=== PATIENT | male | born 1955 | race Hispanic/Latino ===

== ENCOUNTER 2017-09-04 07:24 | Emergency (ER) | payer OTHER ==
[2017-09-04 07:27] VITALS: BMI 25.7
[2017-09-04 07:29] VITALS: RESP 16; TEMP 97.8
--- NOTE | 2017-09-04 08:00 | ED PDOC ---
HPI: Psych/Substance Abuse Time Seen by Provider: 09/04/17 07:36 Chief Complaint (Nursing): GI Problem Chief Complaint (Provider): Detox History Per: Patient History/Exam Limitations: no limitations Onset/Duration Of Symptoms: Days (4) Current Symptoms Are (Timing): Still Present Additional Complaint(s): 61yo male, with past medical history of cholecystectomy, presents to ED for evaluation requesting to enter a detoxification program. Patient states he is currently withdrawing form alcohol use and reports sweats, dry heaving, lower abdominal pain and shakes. He states his last drink was 4 days ago and he has been experiencing these symptoms since then. He denies any other drug use. Patient offers no other medical complaints. PMD: Dr. Marilynn Castro Past Medical History Reviewed: Historical Data, Nursing Documentation, Vital Signs Vital Signs: Last Vital Signs Temp 97.8 F 09/04/17 07:27 Pulse 75 09/04/17 07:27 Resp 16 09/04/17 07:27 BP 127/85 09/04/17 07:27 Pulse Ox 98 09/04/17 07:27 - Medical History PMH: Denies: Diabetes, Hepatitis, HIV, HTN, Chronic Kidney Disease, Seizures, Sexually Transmitted Disease - Surgical History Surgical History: Cholecystectomy Other surgeries: nose reconstruction surgery - Family History Family History: States: No Known Family Hx, Unknown Family Hx - Social History Current smoker - smoking cessation education provided: No Ex-Smoker (has not smoked in the last 12 months): No Alcohol: > 2 Drinks/Day Drugs: Denies - Home Medications Home Medications: Ambulatory Orders Medication Instructions Recorded Alprazolam [Xanax] 0.5 mg PO TID 08/03/17 LORazepam [Ativan] 1 mg PO Q6H PRN #16 tab 09/04/17 - Allergies Allergies/Adverse Reactions: Allergies Allergy/AdvReac Type Severity Reaction Status Date / Time chlordiazepoxide AdvReac VOMITING Verified 09/04/17 07:38 [From Librium] Review of Systems ROS Statement: Except As Marked, All Systems Reviewed And Found Negative Constitutional: Positive for: Sweats, Other (shakes) Gastrointestinal: Positive for: Abdominal Pain (lower), Other ("dry heaves") Psych: Positive for: Withdrawal (alcohol) Physical Exam - Reviewed Nursing Documentation Reviewed: Yes Vital Signs Reviewed: Yes - Physical Exam Appears: Positive for: No Acute Distress Head Exam: Positive for: ATRAUMATIC, NORMAL INSPECTION, NORMOCEPHALIC Eye Exam: Positive for: Normal appearance Neck: Positive for: Supple Extremity: Positive for: Other (tremors noted to upper extremity) Neurologic/Psych: Positive for: Alert, Oriented (x 3) - Laboratory Results Result Diagrams: 09/04/17 09:04 09/04/17 09:04 - ECG ECG Rhythm: Positive for: Normal QRS, Normal ST Segment, Sinus Rhythm Rate: 66 O2 Sat by Pulse Oximetry: 98 (RA) Pulse Ox Interpretation: Normal Medical Decision Making Medical Decision Making: Time: 748 Impression: Alcohol withdrawal Plan: -- EKG -- CMP -- CBC -- UDS -- Lipase -- Ativan 1mg IM -- IV FLuids -- Urinalysis Reassess Scribe Attestation: Documented by Kalani Birmingham acting as a scribe for Gunjan Nichole MD. Provider Attestation: All medical record entries made by the Scribe were at my direction and personally dictated by me. I have reviewed the chart and agree that the record accurately reflects my personal performance of the history, physical exam, medical decision making, and the department course for this patient. I have also personally directed, reviewed, and agree with the discharge instructions and disposition. 11.00 patient feeling better. labs reviewed. [place] [employer] reviewed. No recent prescription. Patient appears to have been prescribed Ativan by his PMD. He has also been on amphetamines and opiates but none recently. Will give 4 days of Ativan and have him followup with PMD. Disposition - Clinical Impression Clinical Impression: Alcohol dependence - Patient ED Disposition Is Patient to be Admitted: No Doctor Will See Patient In The: Office Counseled Patient/Family Regarding: Diagnosis, Need For Followup, Rx Given - Disposition Referrals: Marilynn Castro MD [Family Provider] - Disposition: Routine/Home Disposition Time: 11:30 Condition: STABLE Prescriptions: LORazepam [Ativan] 1 mg PO Q6H PRN #16 tab PRN Reason: ALCOHOL Instructions: Alcohol Dependence (ED) Forms: [facility] (Malagasy) - POA Present On Arrival: None
[2017-09-04] MEDS ORDERED: Sodium Chloride 0.9% 1,000 ML IV STA (08:01)
[2017-09-04 09:10] LABS: BASO % 0.7 % (0.0-2.0); EOS % 0.8 % (0.0-4.0); HEMATOCRIT 47.4 % (35.0-51.0); LYMPH % 18.9 % (20.0-40.0); MEAN CELL VOLUME 97.7 fl (80.0-94.0); MEAN CORPUSCULAR HEMOGLOBIN 34.1 pg (27.0-31.0); MEAN CORPUSCULAR HGB CONC 34.9 g/dL (33.0-37.0); MEAN PLATELET VOLUME 7.5 fl (7.2-11.7); MONO # 0.6 K/uL (0.0-0.8); MONO % 11.5 % (0.0-10.0); NEUT # 3.5 K/uL (1.8-7.0); NEUT % 68.1 % (50.0-75.0); NRBC % 0.2 % (0.0-0.0); RED CELL DISTRIBUTION WIDTH 13.4 % (11.5-14.5); WHITE BLOOD COUNT 5.2 K/uL (4.8-10.8)
[2017-09-04 09:17] LABS: ALB/GLOB RATIO 1.6 (1.0-2.1); ALCOHOL SERUM < 10 mg/dl (0-10); ALKALINE PHOSPHATASE 80 U/L (38-126); ALT/SGPT 52 U/L (21-72); AST/SGOT 46 U/L (17-59); BILIRUBIN,TOTAL 2.1 mg/dl (0.2-1.3); BLOOD UREA NITROGEN 11 mg/dl (9-20); CALCIUM 9.5 mg/dL (8.4-10.2); CARBON DIOXIDE 26 mmol/L (22-30); CHLORIDE 100 mmol/L (98-107); GFR AFRICAN-AMERICAN > 60; GLUCOSE,RANDOM 125 mg/dL (75-110); LIPASE 154 U/L (23-300); POTASSIUM 3.7 MMOL/L (3.6-5.0); SODIUM 137 mmol/l (132-148)
[2017-09-04 11:01] LABS: RBC URINE 3 /hpf (0-3); URINE BACTERIA OCC (<OCC); URINE BILIRUBIN NEGATIVE (NEGATIVE); URINE BLOOD NEGATIVE (NEGATIVE); URINE COLOR AMBER (YELLOW); URINE GLUCOSE (UA) NEG (Normal); URINE KETONE NEGATIVE (NEGATIVE); URINE LEUKOCYTE ESTERASE NEG Leu/uL (Negative); URINE PROTEIN 30 mg/dL (NEGATIVE); URINE UROBILINOGEN 0.2-1.0 mg/dL (0.2-1.0); WBC URINE 3 /hpf (0-5)
[2017-09-04 12:07] VITALS: BP 130/72; PULSE 78; O2SAT 99
--- NOTE | 2017-09-07 17:39 | CARD ---
APPROVED REPORT EKG Measurement Heart [id number] <Conclusion> Normal sinus rhythm Left axis deviation Abnormal ECG
== END 2017-09-04 12:07 | disposition home or self-care (01) ==
LOC: H.ER 07:24
DX: F10.239 Alcohol dependence with withdrawal, unspecified (principal); Z87.891 Personal history of nicotine dependence; Z90.49 Acquired absence of other specified parts of digestive tract
CPT/HCPCS: 80053; 80320; 80324; 80345; 80346; 80349; 80353; 80358; 80361; 81003; 83690; 83992; 85025; 93005; 96372; 96374; 96375; 99283; J2060; J2405; J7040

== ENCOUNTER 2017-09-16 13:38 | Emergency (ER) | payer OTHER ==
[2017-09-16 13:39] VITALS: BMI 25.7
--- NOTE | 2017-09-16 13:46 | ED PDOC ---
HPI: Psych/Substance Abuse Time Seen by Provider: 09/16/17 13:44 Chief Complaint (Nursing): Alcohol Ingestion Chief Complaint (Provider): ETOH History Per: Patient Additional Complaint(s): 61yo male, with past medical history of cholecystectomy, Brought in by [facility], Pt fell abrasion noted to right hand. Pt admits to drinking alcohol and lost his balance. Pt fell hands out infront of him. No head injury, no LOC. no physical complaints. He denies any other drug use. Patient offers no other medical complaints. PMD: Dr. Marilynn Castro Past Medical History Reviewed: Nursing Documentation, Vital Signs Vital Signs: Last Vital Signs Temp 98.0 F 09/16/17 13:41 Pulse 60 09/16/17 13:41 Resp 18 09/16/17 13:41 BP 174/115 H 09/16/17 13:41 Pulse Ox 99 09/16/17 13:41 - Medical History PMH: No Chronic Diseases Denies: Diabetes, Hepatitis, HIV, HTN, Chronic Kidney Disease, Seizures, Sexually Transmitted Disease - Surgical History Surgical History: Cholecystectomy - Family History Family History: States: Unknown Family Hx - Social History Current smoker - smoking cessation education provided: No Alcohol: > 2 Drinks/Day Drugs: Denies - Home Medications Home Medications: Ambulatory Orders Medication Instructions Recorded Alprazolam [Xanax] 0.5 mg PO TID 08/03/17 LORazepam [Ativan] 1 mg PO Q6H PRN #16 tab 09/04/17 - Allergies Allergies/Adverse Reactions: Allergies Allergy/AdvReac Type Severity Reaction Status Date / Time chlordiazepoxide AdvReac VOMITING Verified 09/04/17 07:38 [From Librium] Review of Systems ROS Statement: Except As Marked, All Systems Reviewed And Found Negative Physical Exam - Reviewed Nursing Documentation Reviewed: Yes Vital Signs Reviewed: Yes - Physical Exam Appears: Positive for: Well, Non-toxic, No Acute Distress Head Exam: Positive for: ATRAUMATIC, NORMAL INSPECTION, NORMOCEPHALIC Skin: Positive for: Normal Color, Warm, DRY Eye Exam: Positive for: EOMI, Normal appearance, PERRL ENT: Positive for: Normal ENT Inspection Neck: Positive for: Normal, Painless ROM Cardiovascular/Chest: Positive for: Regular Rate, Rhythm Respiratory: Positive for: CNT, Normal Breath Sounds Gastrointestinal/Abdominal: Positive for: Normal Exam, Bowel Sounds, Soft Back: Positive for: Normal Inspection Extremity: Positive for: Normal ROM Neurologic/Psych: Positive for: Alert, Oriented Comments: superficial abrasion to left hand, no active bleeding - ECG O2 Sat by Pulse Oximetry: 99 Medical Decision Making Medical Decision Making: Pt in ED room on monitor: 127/84 Abrasion sites cleaned and dressed. No suture repair needed. Pt able to ambulate with steady gait. Speaking in full sentences. [facility] [address] [facility], able to ambulate home with steady gait. Disposition - Clinical Impression Clinical Impression: Alcohol abuse - Patient ED Disposition Is Patient to be Admitted: No - Disposition Disposition: Routine/Home Disposition Time: 14:16 Condition: STABLE Instructions: Abuse of Alcohol (ED) Forms: [employer] [facility] (Faroese)
[2017-09-16 13:50] VITALS: PULSE 60; RESP 18; TEMP 98; O2SAT 99
[2017-09-16 14:06] VITALS: BP 127/84
== END 2017-09-16 14:11 | disposition home or self-care (01) ==
LOC: H.ER 13:38
DX: F10.10 Alcohol abuse, uncomplicated (principal); Z90.49 Acquired absence of other specified parts of digestive tract

== ENCOUNTER 2017-10-18 08:45 | Emergency (ER) | payer OTHER ==
[2017-10-18 08:45] VITALS: BMI 25.7
[2017-10-18 08:56] VITALS: TEMP 98.6; O2SAT 97
[2017-10-18] MEDS ORDERED: Sodium Chloride 0.9% 1,000 ML IV STA (09:08)
[2017-10-18] MEDS ORDERED: Thiamine 100 mg/ml Inj IM ONE (09:09)
[2017-10-18 09:34] LABS: BASO # 0.1 K/uL (0.0-0.2); BASO % 2.7 % (0.0-2.0); EOS # 0.2 K/uL (0.0-0.7); EOS % 4.1 % (0.0-4.0); HEMOGLOBIN 17.4 g/dL (12.0-18.0); LYMPH # 1.9 K/uL (1.0-4.3); LYMPH % 37.6 % (20.0-40.0); MEAN CELL VOLUME 98.1 fl (80.0-94.0); MEAN CORPUSCULAR HEMOGLOBIN 33.7 pg (27.0-31.0); MEAN CORPUSCULAR HGB CONC 34.4 g/dL (33.0-37.0); MEAN PLATELET VOLUME 7.4 fl (7.2-11.7); MONO # 0.4 K/uL (0.0-0.8); MONO % 7.1 % (0.0-10.0); NEUT # 2.4 K/uL (1.8-7.0); NEUT % 48.5 % (50.0-75.0); NRBC % 0.2 % (0.0-0.0); RBC 5.15 Mil/uL (4.40-5.90); RED CELL DISTRIBUTION WIDTH 12.9 % (11.5-14.5)
[2017-10-18 09:50] LABS: ALB/GLOB RATIO 1.5 (1.0-2.1); ALBUMIN 4.4 g/dL (3.5-5.0); ALT/SGPT 94 U/L (21-72); AST/SGOT 118 U/L (17-59); BLOOD UREA NITROGEN 8 mg/dl (9-20); CALCIUM 9.3 mg/dL (8.4-10.2); GFR AFRICAN-AMERICAN > 60; GFR NON-AFRICAN AMERICAN > 60; LIPASE 144 U/L (23-300)
[2017-10-18 09:58] LABS: PARTIAL THROMBOPLASTIN TIME 26.8 Seconds (25.6-37.1); PROTHROMBIN TIME 11.6 Seconds (9.8-13.1)
--- NOTE | 2017-10-18 10:26 | ED PDOC ---
HPI: General Adult Time Seen by Provider: 10/18/17 09:08 Chief Complaint (Nursing): GI Problem Chief Complaint (Provider): Weakness, vomiting History Per: Patient Onset/Duration Of Symptoms: Hrs Have you had recent travel within the past 21 days to any of the following countries: [place], [place], [place] or [place]?: No Current Symptoms Are (Timing): Still Present Additional Complaint(s): 62yo male with history of alcohol dependence, presents to ED with vomiting, tremulousness, and generalized weakness since he started increasing his alcohol intake. 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 He reports this morning he had few episodes of blood tinged vomits. He also reports constipation but denies any melena. Patient states he is depressed as well but denies any suicidal ideation or plan. Of note, patient was recently admitted to [facility] in 08/2017 for detoxification. Past Medical History Reviewed: Historical Data, Nursing Documentation, Vital Signs Vital Signs: Last Vital Signs Temp 98.6 F 10/18/17 12:38 Pulse 97 H 10/18/17 12:38 Resp 16 10/18/17 12:38 BP 146/97 H 10/18/17 12:38 Pulse Ox 97 10/18/17 12:38 - Medical History PMH: Depression Denies: Diabetes, Hepatitis, HIV, HTN, Chronic Kidney Disease, Seizures, Sexually Transmitted Disease - Surgical History Surgical History: Cholecystectomy - Family History Family History: States: Unknown Family Hx - Social History Alcohol: > 2 Drinks/Day - Home Medications Home Medications: Ambulatory Orders Medication Instructions Recorded Gabapentin [Neurontin] 300 mg PO TID #90 cap 09/27/17 Multivitamins [Hexavitamin] 1 tab PO DAILY #30 tab 09/27/17 traZODone [Desyrel] 50 mg PO HS PRN #30 tab 09/27/17 - Allergies Allergies/Adverse Reactions: Allergies Allergy/AdvReac Type Severity Reaction Status Date / Time chlordiazepoxide AdvReac VOMITING Verified 10/18/17 09:03 [From Librium] Review of Systems ROS Statement: Except As Marked, All Systems Reviewed And Found Negative Constitutional: Positive for: Weakness, Other (tremulous) Gastrointestinal: Positive for: Vomiting, Constipation. Negative for: Melena Psych: Positive for: Depression. Negative for: Suicidal ideation Physical Exam - Reviewed Nursing Documentation Reviewed: Yes Vital Signs Reviewed: Yes - Physical Exam Appears: Positive for: No Acute Distress (mildly tremulous) Head Exam: Positive for: ATRAUMATIC, NORMAL INSPECTION, NORMOCEPHALIC Skin: Positive for: Normal Color Eye Exam: Positive for: Normal appearance, EOMI, PERRL Neck: Positive for: Supple Cardiovascular/Chest: Positive for: Regular Rate, Rhythm Respiratory: Positive for: Normal Breath Sounds. Negative for: Respiratory Distress Gastrointestinal/Abdominal: Positive for: Soft. Negative for: Tenderness Extremity: Positive for: Normal ROM. Negative for: Deformity, Swelling Neurologic/Psych: Positive for: Alert, Oriented - Laboratory Results Result Diagrams: 10/18/17 09:31 10/18/17 09:31 - ECG ECG: Positive for: Interpreted By Me, Viewed By Me ECG Rhythm: Positive for: Sinus Rhythm Interpretation Of ECG: Left axis deviation Rate: 73 O2 Sat by Pulse Oximetry: 97 (RA) Pulse Ox Interpretation: Normal Medical Decision Making Medical Decision Making: Impression: Generalized weakness, vomiting Plan: -- EKG -- LAbs -- IV Fluids -- Thiamine 100mg IM -- Pepcid 20mg IV -- Zofran 4mg IV labs reviewed, c/w chronic alcohol abuse Monitored 3+ hrs in ED, no signs pending DTs, CIWA scale remained <10, gait stable no vomiting in ED. Offered list detox/rehab centers in area. Requested xanax but told inappropriate medication given alcohol intake. Denies suicidal thoughts or depression currently. DC from ED as no tachycardia, no vomiting, normal mentation, no seizure activity and no evidence acute psychiatric crisis. Scribe Attestation: Documented by Kalani Birmingham, acting as a scribe for Darryl Lee DO. Provider Scribe Attestation: All medical record entries made by the Scribe were at my direction and personally dictated by me. I have reviewed the chart and agree that the record accurately reflects my personal performance of the history, physical exam, medical decision making, and the department course for this patient. I have also personally directed, reviewed, and agree with the discharge instructions and disposition. Disposition - Clinical Impression Clinical Impression: Alcohol dependence, Alcohol withdrawal - Patient ED Disposition Is Patient to be Admitted: No - Disposition Referrals: Alcoholics Anonymous [Outside] Disposition: Routine/Home Disposition Time: 12:30 Condition: STABLE Additional Instructions: Return to ER for any concern. Instructions: Alcohol Withdrawal (ED), Alcohol Dependence (ED) Forms: [employer] [facility] (Hebrew)
[2017-10-18] MEDS ORDERED: Thiamine 100 mg/ml Inj ONE (10:59)
[2017-10-18 12:39] VITALS: BP 146/97; RESP 16
--- NOTE | 2017-10-19 11:19 | CARD ---
APPROVED REPORT EKG Measurement Heart [id number] <Conclusion> Normal sinus rhythm Left axis deviation Abnormal ECG
[2017-10-24 12:49] VITALS: PULSE 73
== END 2017-10-18 12:39 | disposition home or self-care (01) ==
LOC: H.ER 08:45
DX: F10.239 Alcohol dependence with withdrawal, unspecified (principal); Z86.59 Personal history of other mental and behavioral disorders
CPT/HCPCS: 80053; 80320; 83690; 85025; 85610; 85730; 93005; 96372; 96374; 96375; 96376; 99284; C9113; J2060; J2405; J3411; J7040

== ENCOUNTER 2018-08-12 02:45 | Emergency (ER) | payer OTHER ==
[2018-08-12 02:45] VITALS: BMI 25.7
[2018-08-12 02:53] VITALS: TEMP 97.9
--- NOTE | 2018-08-12 04:00 | ED PDOC ---
HPI: Psych/Substance Abuse Time Seen by Provider: 08/12/18 02:59 Chief Complaint (Nursing): Alcohol Ingestion Chief Complaint (Provider): Alcohol Ingestion ED Caveat: Intoxicated History Per: EMS History/Exam Limitations: intoxication Onset/Duration Of Symptoms: Sudden Onset Current Symptoms Are (Timing): Still Present Modifying Factor(s): Alcohol Additional Complaint(s): 62 year old male, well-known to ED for alcohol abuse, arrives via EMS for an evaluation of public alcohol intoxication prior to arrival. Unable to obtain further medical history secondary to clinical condition. PCP: none provided Past Medical History Reviewed: Historical Data, Nursing Documentation, Vital Signs Vital Signs: Last Vital Signs Temp 97.9 F 08/12/18 02:51 Pulse 78 08/12/18 02:51 Resp 16 08/12/18 02:51 BP 112/78 08/12/18 02:51 Pulse Ox 94 L 08/12/18 02:51 - Medical History PMH: Depression Denies: Diabetes, Hepatitis, HIV, HTN, Chronic Kidney Disease, Seizures, Sexually Transmitted Disease - Surgical History Surgical History: Cholecystectomy - Family History Family History: States: Unknown Family Hx - Home Medications Home Medications: Ambulatory Orders Medication Instructions Recorded RX: Gabapentin [Neurontin] 300 mg PO TID #90 cap 09/27/17 RX: Multivitamins [Hexavitamin] 1 tab PO DAILY #30 tab 09/27/17 RX: traZODone [Desyrel] 50 mg PO HS PRN #30 tab 09/27/17 - Allergies Allergies/Adverse Reactions: Allergies Allergy/AdvReac Type Severity Reaction Status Date / Time chlordiazepoxide AdvReac VOMITING Verified 10/18/17 09:03 [From Librium] Review of Systems Review Of Systems: ROS cannot be obtained secondary to pt's inabilty to answer questions. Physical Exam - Reviewed Nursing Documentation Reviewed: Yes Vital Signs Reviewed: Yes - Physical Exam Appears: Positive for: Non-toxic, No Acute Distress Head Exam: Positive for: ATRAUMATIC, NORMAL INSPECTION, NORMOCEPHALIC Skin: Positive for: Normal Color Eye Exam: Positive for: Normal appearance ENT: Positive for: Normal ENT Inspection Neck: Positive for: Normal Cardiovascular/Chest: Positive for: Regular Rate, Rhythm Respiratory: Positive for: Normal Breath Sounds. Negative for: Respiratory Distress Gastrointestinal/Abdominal: Positive for: Normal Exam, Soft Extremity: Positive for: Normal ROM (upper/lower) Neurologic/Psych: Positive for: Alert, Oriented, Gait (unsteady), Other (slurred speech; (+) AOB) - ECG O2 Sat by Pulse Oximetry: 94 (RA) Pulse Ox Interpretation: Normal Medical Decision Making Medical Decision Making: Initial Impression: 62 year old male with alcohol intoxication Initial Plan: * Accucheck * Labs * Clinical sobriety At 7AM pt with persistent unsteady gait; patient will be s/o to Dr Oleary pending sobriety Scribe Attestation: Documented by Dannielle Stroud, acting as a scribe for Marco Irvin MD. Provider Scribe Attestation: All medical record entries made by the Scribe were at my direction and personally dictated by me. I have reviewed the chart and agree that the record accurately reflects my personal performance of the history, physical exam, medical decision making, and the department course for this patient. I have also personally directed, reviewed, and agree with the discharge instructions and disposition. Disposition - Clinical Impression Clinical Impression: Alcohol abuse with intoxication - Disposition Disposition: Transfer of Care Disposition Time: 07:00 Condition: FAIR Instructions: Alcohol Abuse and Alcoholism (DC) Forms: [employer] (Georgian)
[2018-08-12 07:33] VITALS: BP 116/74; PULSE 76; RESP 18
--- NOTE | 2018-08-12 08:27 | ED PDOC ---
- ECG O2 Sat by Pulse Oximetry: 98 Medical Decision Making Medical Decision Makin:00 Patient signed out to this provider from Dr. Irvin. Pending sobriety. Scribe Attestation: Documented by Sheldon Zimmerman acting as a scribe for Anu Oleary MD. Provider Scribe Attestation: All medical record entries made by the Scribe were at my direction and personally dictated by me. I have reviewed the chart and agree that the record accurately reflects my personal performance of the history, physical exam, medical decision making, and the department course for this patient. I have also personally directed, reviewed, and agree with the discharge instructions and disposition. Disposition - Clinical Impression Clinical Impression: Alcohol abuse with intoxication - POA Present On Arrival: None - Disposition Disposition: Routine/Home Disposition Time: 08:00 Condition: IMPROVED Instructions: Alcohol Abuse and Alcoholism (DC) Forms: [employer] (Maltese)
[2018-08-12 19:59] VITALS: O2SAT 94
== END 2018-08-12 08:15 | disposition home or self-care (01) ==
LOC: H.ER 02:45
DX: F10.129 Alcohol abuse with intoxication, unspecified (principal); Z86.59 Personal history of other mental and behavioral disorders; Y90.7 Blood alcohol level of 200-239 mg/100 ml

== ENCOUNTER 2018-09-09 13:50 | Observation (INO) | payer OTHER ==
[2018-09-09 13:52] VITALS: BMI 25.7
--- NOTE | 2018-09-09 14:19 | ED PDOC ---
HPI: Chest Pain Time Seen by Provider: 09/09/18 13:57 Chief Complaint (Nursing): Alcohol Ingestion History Per: Patient Onset/Duration Of Symptoms: Days (1) Current Symptoms Are (Timing): Still Present Severity: Moderate Associated Symptoms: Dyspnea Modifying Factors: None Additional Complaint(s): Intermittent chest pain worse today. Nonradiating. Assoc with SOB. Admits to ETOH ingestion. Denies fever. Past Medical History - Medical History PMH: Depression Denies: Diabetes, Hepatitis, HIV, HTN, Chronic Kidney Disease, Seizures, Sexually Transmitted Disease - Surgical History Surgical History: Cholecystectomy - Family History Family History: States: Unknown Family Hx - Home Medications Home Medications: Ambulatory Orders Medication Instructions Recorded Gabapentin [Neurontin] 300 mg PO TID #90 cap 09/27/17 Multivitamins [Hexavitamin] 1 tab PO DAILY #30 tab 09/27/17 traZODone [Desyrel] 50 mg PO HS PRN #30 tab 09/27/17 - Allergies Allergies/Adverse Reactions: Allergies Allergy/AdvReac Type Severity Reaction Status Date / Time chlordiazepoxide AdvReac VOMITING Verified 10/18/17 09:03 [From Librium] Review of Systems ROS Statement: Except As Marked, All Systems Reviewed And Found Negative Cardiovascular: Positive for: Chest Pain Respiratory: Positive for: Shortness of Breath Physical Exam - Reviewed Nursing Documentation Reviewed: Yes Vital Signs Reviewed: Yes - Physical Exam Appears: Positive for: Non-toxic, No Acute Distress Head Exam: Positive for: ATRAUMATIC, NORMAL INSPECTION, NORMOCEPHALIC Skin: Positive for: Normal Color, Warm, DRY Eye Exam: Positive for: EOMI, Normal appearance, PERRL ENT: Positive for: Normal ENT Inspection Neck: Positive for: Normal, Painless ROM Cardiovascular/Chest: Positive for: Regular Rate, Rhythm Respiratory: Positive for: Rhonchi. Negative for: Wheezing, Respiratory Distress Gastrointestinal/Abdominal: Positive for: Normal Exam, Soft. Negative for: Tenderness Back: Positive for: Normal Inspection Extremity: Positive for: Normal ROM Neurologic/Psych: Positive for: Alert, Oriented - Laboratory Results Result Diagrams: 09/09/18 14:26 09/09/18 14:26 Disposition - Clinical Impression Clinical Impression: Chest pain - Patient ED Disposition Is Patient to be Admitted: Yes - Disposition Disposition Time: 15:35 Condition: FAIR Forms: [facility] (Kyrgyz) - Pt Status Changed To: Hospital Disposition Of: Observation - POA Present On Arrival: None
[2018-09-09 14:31] LABS: BASO % 0.2 % (0.0-2.0); EOS # 0.3 K/uL (0.0-0.7); EOS % 6.2 % (0.0-4.0); HEMOGLOBIN 16.6 g/dL (12.0-18.0); LYMPH # 1.4 K/uL (1.0-4.3); LYMPH % 31.2 % (20.0-40.0); MEAN CELL VOLUME 100.2 fl (80.0-94.0); MEAN CORPUSCULAR HEMOGLOBIN 34.4 pg (27.0-31.0); MEAN CORPUSCULAR HGB CONC 34.3 g/dL (33.0-37.0); MEAN PLATELET VOLUME 6.6 fl (7.2-11.7); MONO # 0.5 K/uL (0.0-0.8); MONO % 11.2 % (0.0-10.0); NEUT # 2.3 K/uL (1.8-7.0); NEUT % 51.2 % (50.0-75.0); NRBC % 0.1 % (0.0-0.0); RBC 4.83 Mil/uL (4.40-5.90); RED CELL DISTRIBUTION WIDTH 15.3 % (11.5-14.5); WHITE BLOOD COUNT 4.5 K/uL (4.8-10.8)
[2018-09-09 14:45] LABS: ALB/GLOB RATIO 1.2 (1.0-2.1); ALBUMIN 3.5 g/dL (3.5-5.0); ALT/SGPT 113 U/L (21-72); AST/SGOT 157 U/L (17-59); BLOOD UREA NITROGEN 9 mg/dl (9-20); CALCIUM 8.6 mg/dL (8.4-10.2); GFR NON-AFRICAN AMERICAN > 60
[2018-09-09 14:46] VITALS: TEMP 98.7
[2018-09-09 15:02] LABS: BARBITURATES, UR NEGATIVE (NEGATIVE); BENZODIAZEPINES, UR POSITIVE (NEGATIVE); OPIATES, UR NEGATIVE (NEGATIVE); PHENCYCLIDINE, UR NEGATIVE (NEGATIVE)
[2018-09-09] MEDS ORDERED: Multivitamin (MVI) 10 ML, Thiamine 100 MG, Folic Acid 1 MG in Dextrose 5%/0.45% NS 1,00... IV ONE (15:46)
--- NOTE | 2018-09-09 15:55 | CP.PCM.HP ---
<Aquilino Handy - Last Filed: 09/09/18 16:54> History of Present Illness - History of Present Illness History of Present Illness: This is 62 y/o male with PMH of alcohol abuse admitted to [facility] acutely intoxicated for evaluation and treatment of alcohol intoxication, chest pain and syncope/fall. Patient reports he has been binge drinking since last 14 days, last drink this morning, unable to specify/recall amount and type of alcohol. Patient states he has been having chest pain on and off since last one month with gets worse with inspiration (unable to give us further information possibly due to alcohol intoxication). Reports he fell down this morning at home, denies any pain, unable to answer which part of the body hit the ground. Denies any vomiting, blurred vision, abdominal pain or f/c/n/v/d/c. PMD: unknown PMH: Alcohol abuse, denies any other medical problems PSH: rhinoplasty and cholecystectomy Allg: denies Medications: Reports he takes Xanax at home SH: Reports alcohol abuse, denies smoking or illicit drug use. patient reports he lives by himself. FH: Denies any family history ROS: As per HPI ER course: Afebrile, 120/79, HR 66, Spo2 >95% on 4L NC CBC: 4.5-16.6/48.4-139 CMP: Significant for AST/ALT 157/113 Trop x 1 negative EKG: NSR CXR: No acute changes UTOX: Alcohol 207, Benzo: positive Present on Admission - Present on Admission Any Indicators Present on Admission: No Past Patient History - Past Medical History & Family History Past Medical History?: Yes - CARDIAC Hx Hypertension: No - PULMONARY Hx Tuberculosis: No - NEUROLOGICAL Hx Seizures: No - HEENT Hx HEENT Problems: No - RENAL Hx Chronic Kidney Disease: No - ENDOCRINE/METABOLIC Hx Endocrine Disorders: No - HEMATOLOGICAL/ONCOLOGICAL Hx Human Immunodeficiency Virus (HIV): No - INTEGUMENTARY Hx Dermatological Problems: No - MUSCULOSKELETAL/RHEUMATOLOGICAL Hx Falls: No - GASTROINTESTINAL Hx Gastrointestinal Disorders: No - GENITOURINARY/GYNECOLOGICAL Hx Sexually Transmitted Disorders: No - PSYCHIATRIC Hx Depression: Yes - SURGICAL HISTORY Hx Cholecystectomy: Yes - ANESTHESIA Hx Anesthesia: Yes Hx Anesthesia Reactions: No Hx Malignant Hyperthermia: No Meds Allergies/Adverse Reactions: Allergies Allergy/AdvReac Type Severity Reaction Status Date / Time chlordiazepoxide AdvReac VOMITING Verified 10/18/17 09:03 [From Librium] Physical Exam - Constitutional Appears: No Acute Distress, Other (intoxicated ) - Head Exam Head Exam: NORMOCEPHALIC Additional comments: small abrasions on left parietal lobe - Eye Exam Eye Exam: EOMI. absent: Conjunctival injection Pupil Exam: Unequal (L pupil smaller than R ) - ENT Exam ENT Exam: Mucous Membranes Moist - Neck Exam Neck exam: Positive for: Normal Inspection - Respiratory Exam Respiratory Exam: Clear to Auscultation Bilateral, NORMAL BREATHING PATTERN. absent: Accessory Muscle Use, Wheezes - Cardiovascular Exam Cardiovascular Exam: REGULAR RHYTHM, +S1, +S2. absent: Bradycardia, Tachycardia - GI/Abdominal Exam GI & Abdominal Exam: Normal Bowel Sounds, Soft. absent: Tenderness - Exam Exam: Circumcision External exam: NORMAL EXTERNAL EXAM. absent: Lacerations - Extremities Exam Extremities exam: Negative for: calf tenderness, pedal edema, tenderness Additional comments: Left heel small open old wound - Back Exam Back exam: NORMAL INSPECTION. absent: CVA tenderness (L), CVA tenderness (R) - Neurological Exam Neurological exam: Alert - Psychiatric Exam Psychiatric exam: Anxious - Skin Skin Exam: Dry, Normal Color, Warm Results - Vital Signs Recent Vital Signs: Last Vital Signs Temp 98.7 F 09/09/18 14:45 Pulse 68 09/09/18 15:21 Resp 21 09/09/18 15:14 BP 127/79 09/09/18 15:14 Pulse Ox 94 L 09/09/18 15:14 - Labs Result Diagrams: 09/09/18 14:26 09/09/18 14:26 Labs: Laboratory Results - last 24 hr 09/09/18 09/09/18 09/09/18 14:26 14:26 14:41 WBC 4.5 L RBC 4.83 Hgb 16.6 Hct 48.4 MCV 100.2 H D MCH 34.4 H MCHC 34.3 RDW 15.3 H Plt Count 139 MPV 6.6 L Neut % (Auto) 51.2 Lymph % (Auto) 31.2 [place] % (Auto) 11.2 H Eos % (Auto) 6.2 H Baso % (Auto) 0.2 Neut # (Auto) 2.3 Lymph # (Auto) 1.4 [place] # (Auto) 0.5 Eos # (Auto) 0.3 Baso # (Auto) 0.0 Sodium 143 Potassium 4.0 Chloride 107 Carbon Dioxide 25 Anion Gap 15 BUN 9 Creatinine 0.9 Est GFR ( Amer) > 60 Est GFR (Non-Af Amer) > 60 Random Glucose 80 Calcium 8.6 Total Bilirubin 0.8 AST 157 H D ALT 113 H D Alkaline Phosphatase 82 Troponin I < 0.0120 Total Protein 6.4 Albumin 3.5 D Globulin 3.0 Albumin/Globulin Ratio 1.2 Urine Opiates Screen Negative Urine Methadone Screen Negative Ur Barbiturates Screen Negative Ur Phencyclidine Scrn Negative Ur Amphetamines Screen Negative U Benzodiazepines Scrn Positive U Oth Cocaine Metabols Negative U Cannabinoids Screen Negative Alcohol, Quantitative 207 H Assessment & Plan - Assessment and Plan (Free Text) Assessment: A/P: 62 y/o male with PMH of alcohol abuse admitted to [facility] acutely intoxicated for evaluation and treatment of alcohol intoxication, chest pain and syncope/fall. Chest pain, R/o ACS - Troponin x1 negative - EKG: NSR - F/u Trop x2 Q6H - F/u morning EKG - Pepcid for possible GERD Acute alcohol intoxication - START Banana beg - Librium 25 po Q8H - Ativan 0.5mg IV Q6H PRN for agitation - CIWA - Zofran PRN - Follow up morning electrolytes A fall, possibly due to acute intoxication - Head CT: negative for acute changes - Neuro checks DVT PPX - SCD for now <Kris Mcallister D - Last Filed: 09/09/18 18:21> Results - Vital Signs Recent Vital Signs: Last Vital Signs Temp 98.7 F 09/09/18 14:45 Pulse 60 09/09/18 18:13 Resp 16 09/09/18 18:13 BP 127/63 09/09/18 18:13 Pulse Ox 93 L 09/09/18 18:13 - Labs Result Diagrams: 09/09/18 14:26 09/09/18 14:26 Labs: Laboratory Results - last 24 hr 09/09/18 09/09/18 09/09/18 14:26 14:26 14:41 WBC 4.5 L RBC 4.83 Hgb 16.6 Hct 48.4 MCV 100.2 H D MCH 34.4 H MCHC 34.3 RDW 15.3 H Plt Count 139 MPV 6.6 L Neut % (Auto) 51.2 Lymph % (Auto) 31.2 [place] % (Auto) 11.2 H Eos % (Auto) 6.2 H Baso % (Auto) 0.2 Neut # (Auto) 2.3 Lymph # (Auto) 1.4 [place] # (Auto) 0.5 Eos # (Auto) 0.3 Baso # (Auto) 0.0 Sodium 143 Potassium 4.0 Chloride 107 Carbon Dioxide 25 Anion Gap 15 BUN 9 Creatinine 0.9 Est GFR ( Amer) > 60 Est GFR (Non-Af Amer) > 60 Random Glucose 80 Calcium 8.6 Total Bilirubin 0.8 AST 157 H D ALT 113 H D Alkaline Phosphatase 82 Troponin I < 0.0120 Total Protein 6.4 Albumin 3.5 D Globulin 3.0 Albumin/Globulin Ratio 1.2 Urine Opiates Screen Negative Urine Methadone Screen Negative Ur Barbiturates Screen Negative Ur Phencyclidine Scrn Negative Ur Amphetamines Screen Negative U Benzodiazepines Scrn Positive U Oth Cocaine Metabols Negative U Cannabinoids Screen Negative Alcohol, Quantitative 207 H Attending/Attestation - Attestation I have personally seen and examined this patient.: Yes I have fully participated in the care of the patient.: Yes I have reviewed all pertinent clinical information: Yes Notes (Text): 09/09/18 18:21 Patient seen and examined with resident. Case discussed and agreed with assessment and plan.
--- NOTE | 2018-09-09 16:20 | CT ---
Date of service: 09/09/2018 PROCEDURE: CT HEAD WITHOUT CONTRAST. HISTORY: r/o bleed COMPARISON: None available. TECHNIQUE: Axial computed tomography images were obtained through the head/brain without intravenous contrast. Radiation dose: Total exam DLP = 1030.18 mGy-cm. This CT exam was performed using one or more of the following dose reduction techniques: Automated exposure control, adjustment of the mA and/or kV according to patient size, and/or use of iterative reconstruction technique. FINDINGS: HEMORRHAGE: No intracranial hemorrhage. BRAIN: Good corticomedullary differentiation is seen. Proportional, diffuse expansion of the ventriculosulcal and cisternal spaces is appreciated with white matter lucency compatible with diffuse cerebral atrophy and chronic microangiopathy. No suspicious extra-axial fluid collection is identified and the midline brain anatomy appears grossly nonfocal as imaged. There is no mass effect throughout. VENTRICLES: Unremarkable. No hydrocephalus. CALVARIUM: Unremarkable. PARANASAL SINUSES: Unremarkable as visualized. No significant inflammatory changes. MASTOID AIR CELLS: Unremarkable as visualized. No inflammatory changes. OTHER FINDINGS: None. IMPRESSION: Mild age related neuro degenerative changes appear age-appropriate. No definite acute intracranial findings by standard CT criteria. Follow-up CT or MRI is available if clinically warranted.
--- NOTE | 2018-09-09 16:31 | RAD ---
Date of service: 09/09/2018 HISTORY: cough COMPARISON: Chest radiographs 10/26/2016. FINDINGS: LUNGS: Diminished pulmonary volumes. No acute infiltrate bilaterally. PLEURA: No significant pleural effusion identified, no pneumothorax apparent. CARDIOVASCULAR: No aortic atherosclerotic calcification present. Normal cardiac size. No pulmonary vascular congestion. OSSEOUS STRUCTURES: No significant abnormalities. VISUALIZED UPPER ABDOMEN: Normal. OTHER FINDINGS: None. IMPRESSION: Diminished pulmonary volume. No acute infiltrate bilaterally. No acute cardiovascular disease.
[2018-09-09 19:45] VITALS: PULSE 68
[2018-09-09 22:21] VITALS: BP 121/81; RESP 18; O2SAT 96
--- NOTE | 2018-09-10 00:05 | CP.PCM.DIS ---
<Ana LauraAmina - Last Filed: 09/10/18 00:06> Provider - Provider Date of Admission: 09/09/18 15:34 Attending physician: Kris Mcallister MD Time Spent in preparation of Discharge (in minutes): 5 Diagnosis - Discharge Diagnosis (1) Alcohol abuse Status: Acute (2) Chest pain Status: Acute Hospital Course - Lab Results Lab Results: Most Recent Lab Values WBC 4.5 K/uL (4.8-10.8) L 09/09/18 14:26 RBC 4.83 Mil/uL (4.40-5.90) 09/09/18 14:26 Hgb 16.6 g/dL (12.0-18.0) 09/09/18 14:26 Hct 48.4 % (35.0-51.0) 09/09/18 14:26 MCV 100.2 fl (80.0-94.0) H D 09/09/18 14:26 MCH 34.4 pg (27.0-31.0) H 09/09/18 14:26 MCHC 34.3 g/dL (33.0-37.0) 09/09/18 14:26 RDW 15.3 % (11.5-14.5) H 09/09/18 14:26 Plt Count 139 K/uL (130-400) 09/09/18 14:26 MPV 6.6 fl (7.2-11.7) L 09/09/18 14:26 Neut % (Auto) 51.2 % (50.0-75.0) 09/09/18 14: Lymph % (Auto) 31.2 % (20.0-40.0) 09/09/18 14:26 Cass % (Auto) 11.2 % (0.0-10.0) H 09/09/18 14:26 Eos % (Auto) 6.2 % (0.0-4.0) H 09/09/18 14:26 Baso % (Auto) 0.2 % (0.0-2.0) 09/09/18 14:26 Neut # (Auto) 2.3 K/uL (1.8-7.0) 09/09/18 14:26 Lymph # (Auto) 1.4 K/uL (1.0-4.3) 09/09/18 14:26 Cass # (Auto) 0.5 K/uL (0.0-0.8) 09/09/18 14:26 Eos # (Auto) 0.3 K/uL (0.0-0.7) 09/09/18 14:26 Baso # (Auto) 0.0 K/uL (0.0-0.2) 09/09/18 14:26 Sodium 143 mmol/l (132-148) 09/09/18 14:26 Potassium 4.0 MMOL/L (3.6-5.0) 09/09/18 14:26 Chloride 107 mmol/L (98-107) 09/09/18 14:26 Carbon Dioxide 25 mmol/L (22-30) 09/09/18 14:26 Anion Gap 15 (10-20) 09/09/18 14:26 BUN 9 mg/dl (9-20) 09/09/18 14:26 Creatinine 0.9 mg/dl (0.8-1.5) 09/09/18 14:26 Est GFR ( Amer) > 60 09/09/18 14:26 Est GFR (Non-Af Amer) > 60 09/09/18 14:26 Random Glucose 80 mg/dL (75-110) 09/09/18 14:26 Calcium 8.6 mg/dL (8.4-10.2) 09/09/18 14:26 Total Bilirubin 0.8 mg/dl (0.2-1.3) 09/09/18 14:26 AST 157 U/L (17-59) H D 09/09/18 14:26 ALT 113 U/L (21-72) H D 09/09/18 14:26 Alkaline Phosphatase 82 U/L (38-126) 09/09/18 14:26 Troponin I < 0.0120 ng/mL (0.00-0.120) 09/09/18 14:26 Total Protein 6.4 G/DL (6.3-8.2) 09/09/18 14:26 Albumin 3.5 g/dL (3.5-5.0) D 09/09/18 14:26 Globulin 3.0 gm/dL (2.2-3.9) 09/09/18 14:26 Albumin/Globulin Ratio 1.2 (1.0-2.1) 09/09/18 14:26 Urine Opiates Screen Negative (NEGATIVE) 09/09/18 14:41 Urine Methadone Screen Negative (NEGATIVE) 09/09/18 14:41 Ur Barbiturates Screen Negative (NEGATIVE) 09/09/18 14:41 Ur Phencyclidine Scrn Negative (NEGATIVE) 09/09/18 14:41 Ur Amphetamines Screen Negative (NEGATIVE) 09/09/18 14:41 U Benzodiazepines Scrn Positive (NEGATIVE) 09/09/18 14:41 U Oth Cocaine Metabols Negative (NEGATIVE) 09/09/18 14:41 U Cannabinoids Screen Negative (NEGATIVE) 09/09/18 14:41 Alcohol, Quantitative 207 mg/dl (0-10) H 09/09/18 14:26 - Hospital Course Hospital Course: Called from ED that pt wanted to sign out AMA. Pt walked out of ED. Discharge Plan - Follow Up Plan Condition: FAIR Disposition: AGAINST MEDICAL ADVICE <Radha Orozco - Last Filed: 09/12/18 20:17> Provider - Provider Date of Admission: 09/09/18 15:34 Attending physician: Kris Mcallister MD Hospital Course - Lab Results Lab Results: Most Recent Lab Values WBC 4.5 K/uL (4.8-10.8) L 09/09/18 14:26 RBC 4.83 Mil/uL (4.40-5.90) 09/09/18 14:26 Hgb 16.6 g/dL (12.0-18.0) 09/09/18 14:26 Hct 48.4 % (35.0-51.0) 09/09/18 14:26 MCV 100.2 fl (80.0-94.0) H D 09/09/18 14:26 MCH 34.4 pg (27.0-31.0) H 09/09/18 14:26 MCHC 34.3 g/dL (33.0-37.0) 09/09/18 14:26 RDW 15.3 % (11.5-14.5) H 09/09/18 14:26 Plt Count 139 K/uL (130-400) 09/09/18 14:26 MPV 6.6 fl (7.2-11.7) L 09/09/18 14: Neut % (Auto) 51.2 % (50.0-75.0) 09/09/18 14:26 Lymph % (Auto) 31.2 % (20.0-40.0) 09/09/18 14:26 Cass % (Auto) 11.2 % (0.0-10.0) H 09/09/18 14:26 Eos % (Auto) 6.2 % (0.0-4.0) H 09/09/18 14:26 Baso % (Auto) 0.2 % (0.0-2.0) 09/09/18 14:26 Neut # (Auto) 2.3 K/uL (1.8-7.0) 09/09/18 14: Lymph # (Auto) 1.4 K/uL (1.0-4.3) 09/09/18 14: Cass # (Auto) 0.5 K/uL (0.0-0.8) 09/09/18 14: Eos # (Auto) 0.3 K/uL (0.0-0.7) 09/09/18 14:26 Baso # (Auto) 0.0 K/uL (0.0-0.2) 09/09/18 14:26 Sodium 143 mmol/l (132-148) 09/09/18 14:26 Potassium 4.0 MMOL/L (3.6-5.0) 09/09/18 14:26 Chloride 107 mmol/L (98-107) 09/09/18 14:26 Carbon Dioxide 25 mmol/L (22-30) 09/09/18 14:26 Anion Gap 15 (10-20) 09/09/18 14:26 BUN 9 mg/dl (9-20) 09/09/18 14:26 Creatinine 0.9 mg/dl (0.8-1.5) 09/09/18 14:26 Est GFR ( Amer) > 60 09/09/18 14:26 Est GFR (Non-Af Amer) > 60 09/09/18 14:26 Random Glucose 80 mg/dL (75-110) 09/09/18 14:26 Calcium 8.6 mg/dL (8.4-10.2) 09/09/18 14:26 Total Bilirubin 0.8 mg/dl (0.2-1.3) 09/09/18 14:26 AST 157 U/L (17-59) H D 09/09/18 14:26 ALT 113 U/L (21-72) H D 09/09/18 14:26 Alkaline Phosphatase 82 U/L (38-126) 09/09/18 14:26 Troponin I < 0.0120 ng/mL (0.00-0.120) 09/09/18 14:26 Total Protein 6.4 G/DL (6.3-8.2) 09/09/18 14:26 Albumin 3.5 g/dL (3.5-5.0) D 09/09/18 14:26 Globulin 3.0 gm/dL (2.2-3.9) 09/09/18 14:26 Albumin/Globulin Ratio 1.2 (1.0-2.1) 09/09/18 14:26 Urine Opiates Screen Negative (NEGATIVE) 09/09/18 14:41 Urine Methadone Screen Negative (NEGATIVE) 09/09/18 14:41 Ur Barbiturates Screen Negative (NEGATIVE) 09/09/18 14:41 Ur Phencyclidine Scrn Negative (NEGATIVE) 09/09/18 14:41 Ur Amphetamines Screen Negative (NEGATIVE) 09/09/18 14:41 U Benzodiazepines Scrn Positive (NEGATIVE) 09/09/18 14:41 U Oth Cocaine Metabols Negative (NEGATIVE) 09/09/18 14:41 U Cannabinoids Screen Negative (NEGATIVE) 09/09/18 14:41 Alcohol, Quantitative 207 mg/dl (0-10) H 09/09/18 14:26 Attending/Attestation - Attestation I have personally seen and examined this patient.: Yes I have fully participated in the care of the patient.: Yes I have reviewed all pertinent clinical information, including history, physical exam and plan: Yes Notes (Text): 09/12/18 20:17 agree with findings and plan as above.
[2018-09-10] MEDS ORDERED: Sodium Chloride 0.9% 50 ML IV ONE (12:47)
[2018-09-10] MEDS ORDERED: Iohexol 300 100 ML IJ ONE (12:47)
--- NOTE | 2018-09-10 19:01 | CARD ---
APPROVED REPORT Date of service: 09/09/2018 EKG Measurement Heart [id number] <Conclusion> Normal sinus rhythm Normal ECG
== END 2018-09-09 23:08 | disposition left against medical advice (07) ==
LOC: H.ER 13:50 → H.ERHOLD 15:34
DX: R07.9 Chest pain, unspecified (principal); F10.129 Alcohol abuse with intoxication, unspecified; Y90.7 Blood alcohol level of 200-239 mg/100 ml; W19.XXXA Unspecified fall, initial encounter
CPT/HCPCS: 70450; 71045; 80053; 80320; 80324; 80345; 80346; 80349; 80353; 80358; 80361; 83992; 84484; 85025; 93005; 96374; 99285; G0378; J2060; J3411; J7042

== ENCOUNTER 2018-09-10 10:49 | Observation (INO) | payer OTHER ==
[2018-09-10 11:22] VITALS: BMI 27.1
[2018-09-10] MEDS ORDERED: Multivitamin (MVI) 10 ML, Thiamine 100 MG, Folic Acid 1 MG in Sodium Chloride 0.9% 1,00... IV ONE (11:24)
[2018-09-10 12:13] LABS: SQUAMOUS EPITHIAL < 1 /hpf (0-5); URINE BACTERIA RARE (<OCC); URINE BILIRUBIN NEGATIVE (NEGATIVE); URINE BLOOD NEGATIVE (NEGATIVE); URINE CLARITY SLIGHTY-CLOUDY (Clear); URINE COLOR AMBER (YELLOW); URINE GLUCOSE (UA) NEG (NEGATIVE); URINE LEUKOCYTE ESTERASE NEG Leu/uL (Negative); URINE PROTEIN 30 mg/dL (NEGATIVE)
[2018-09-10 12:18] LABS: BASO % 0.8 % (0.0-2.0); EOS # 0.2 K/uL (0.0-0.7); EOS % 5.3 % (0.0-4.0); HEMOGLOBIN 16.2 g/dL (12.0-18.0); INR 1.1; LYMPH # 1.1 K/uL (1.0-4.3); LYMPH % 26.1 % (20.0-40.0); MEAN CELL VOLUME 100.6 fl (80.0-94.0); MEAN CORPUSCULAR HEMOGLOBIN 33.7 pg (27.0-31.0); MEAN CORPUSCULAR HGB CONC 33.5 g/dL (33.0-37.0); MEAN PLATELET VOLUME 7.2 fl (7.2-11.7); MONO # 0.4 K/uL (0.0-0.8); MONO % 9.4 % (0.0-10.0); NEUT # 2.4 K/uL (1.8-7.0); NEUT % 58.4 % (50.0-75.0); RBC 4.8 Mil/uL (4.40-5.90); RED CELL DISTRIBUTION WIDTH 15.3 % (11.5-14.5); WHITE BLOOD COUNT 4.2 K/uL (4.8-10.8)
[2018-09-10 12:21] LABS: PARTIAL THROMBOPLASTIN TIME 27.1 Seconds (25.6-37.1)
--- NOTE | 2018-09-10 12:27 | ED PDOC ---
HPI: Psych/Substance Abuse Time Seen by Provider: 09/10/18 10:59 Chief Complaint (Nursing): Substance Abuse Chief Complaint (Provider): Substance Abuse History Per: Patient History/Exam Limitations: no limitations Onset/Duration Of Symptoms: Days (x1) Associated Symptoms: Other (Alchol withdrawl ) Additional Complaint(s): 62 y/o male with a PMHX of depression present to the ED for psychiatric evaluation associated with headache and dizziness, onset yesterday. Patient states he consumed his last alcoholic beverage, yesterday. Denies any other symptoms. PMD: Dr. Marilynn Castro Past Medical History Reviewed: Historical Data, Nursing Documentation, Vital Signs Vital Signs: Last Vital Signs Temp 98.4 F 09/10/18 12:18 Pulse 58 L 09/10/18 12:18 Resp 18 09/10/18 12:18 BP 117/78 09/10/18 12:18 Pulse Ox 96 09/10/18 12:18 - Medical History PMH: Depression Denies: Diabetes, Hepatitis, HIV, HTN, Chronic Kidney Disease, Seizures, Sexually Transmitted Disease - Surgical History Surgical History: Cholecystectomy - Family History Family History: States: Unknown Family Hx - Social History Alcohol: None Drugs: Denies - Home Medications Home Medications: Ambulatory Orders Medication Instructions Recorded Gabapentin [Neurontin] 300 mg PO TID #90 cap 09/27/17 Multivitamins [Hexavitamin] 1 tab PO DAILY #30 tab 09/27/17 traZODone [Desyrel] 50 mg PO HS PRN #30 tab 09/27/17 - Allergies Allergies/Adverse Reactions: Allergies Allergy/AdvReac Type Severity Reaction Status Date / Time chlordiazepoxide Allergy VOMITING Verified 09/10/18 16:04 [From Librium] Review of Systems ROS Statement: Except As Marked, All Systems Reviewed And Found Negative Neurological: Positive for: Headache, Dizziness Psych: Positive for: Withdrawal Physical Exam - Reviewed Nursing Documentation Reviewed: Yes Vital Signs Reviewed: Yes - Physical Exam Appears: Positive for: Non-toxic, No Acute Distress Head Exam: Positive for: ATRAUMATIC, NORMAL INSPECTION, NORMOCEPHALIC Skin: Positive for: Normal Color, Warm, Dry Eye Exam: Positive for: Normal appearance, EOMI, PERRL Neck: Positive for: Normal Cardiovascular/Chest: Positive for: Regular Rate, Rhythm. Negative for: Murmur Respiratory: Positive for: Normal Breath Sounds. Negative for: Respiratory Distress Gastrointestinal/Abdominal: Negative for: Tenderness (bilateral flank ecchymosis) Back: Positive for: Normal Inspection Neurologic/Psych: Positive for: Other (No alcohol on breath and no tremers. ) - Laboratory Results Result Diagrams: 09/11/18 04:30 09/11/18 04:30 - ECG O2 Sat by Pulse Oximetry: 96 (RA) Pulse Ox Interpretation: Normal Medical Decision Making Medical Decision Making: Time: 11:22 Plan: -ABD & Pelvis IV Contrast -EKG -Alcohol Serum Stat -CMP Stat -Troponin 1 Stat -Urine Dipstick POC -CBC w/ differential -PTT -Prothrombin Time -Chest Portable -Glucose POC -Ativan 2 mg IVP -Sodium Chloride .9% 1,000ml -MVI 10ml -Vitamin B1 INJ 100mg -Folic Acid 1mg -IV 500 mls/hr -Glucose, Blood POC -Urinalysis Time: 13:50 Abdominal/Pelvis CT FINDINGS: LOWER THORAX: Small hiatal hernia identified. LIVER: Gross hepatic steatosis without hepatic mass or intrahepatic biliary dilatation appreciated. GALLBLADDER AND BILE DUCTS: Prior cholecystectomy. PANCREAS: Unremarkable. No gross lesion or ductal dilatation. SPLEEN: Unremarkable. ADRENALS: Unremarkable. No mass. KIDNEYS AND URETERS: Unremarkable. No hydronephrosis. No solid mass. VASCULATURE: Unremarkable. No aortic aneurysm. No aortic atherosclerotic calcification or mural plaque present. BOWEL: Unremarkable. No obstruction. No gross mural thickening. APPENDIX: Normal appendix. PERITONEUM: Unremarkable. No free fluid. No free air. LYMPH NODES: Unremarkable. No enlarged lymph nodes. BLADDER: Urinary bladder is limited evaluation due to near complete decompression. No radiodense urolithiasis appreciated REPRODUCTIVE: Enlarged prostate gland. BONES: Limited grade 1 spondylolisthesis L5-S1. OTHER FINDINGS: None. IMPRESSION: Gross hepatic steatosis. Prior cholecystectomy. No definite acute abdominal or pelvic findings. - Scribe Attestation: Documented by Cynthia Valentine, acting as a scribe for Dr. Jessica Hogan Provider Scribe Attestation: All medical record entries made by the Scribe were at my direction and personally dictated by me. I have reviewed the chart and agree that the record accurately reflects my personal performance of the history, physical exam, med ical decision making, and the department course for this patient. I have also personally directed, reviewed, and agree with the discharge instructions and disposition. Disposition - Clinical Impression Clinical Impression: Alcohol withdrawal - Patient ED Disposition Is Patient to be Admitted: Yes - Disposition Disposition Time: 12:30 Condition: STABLE - Pt Status Changed To: Hospital Disposition Of: Inpatient - Admit Certification Admit to Inpatient:: After my assessment, the patient will require hospitalization for at least two midnights. This is because of the severity of symptoms shown, intensity of services needed, and/or the medical risk in this patient being treated as an outpatient. - POA Present On Arrival: None
[2018-09-10 12:36] LABS: ALB/GLOB RATIO 1.1 (1.0-2.1); ALBUMIN 3.2 g/dL (3.5-5.0); ALT/SGPT 150 U/L (21-72); AST/SGOT 226 U/L (17-59); BLOOD UREA NITROGEN 9 mg/dl (9-20); CALCIUM 8.4 mg/dL (8.4-10.2); GFR NON-AFRICAN AMERICAN > 60
--- NOTE | 2018-09-10 13:00 | CP.PCM.HP ---
<Anshul Handy - Last Filed: 09/10/18 14:12> History of Present Illness - History of Present Illness History of Present Illness: 62 y/o male with PMHx of alcohol abuse admitted to [facility] for alcohol intoxication and alcohol withdrawal evaluation and management. Patient was admitted yesterday for same symptoms but patient left AMA last night. Patient has been binge drinking for last 2 weeks however unable to specify type or quantity of alcohol. Reports last use of alcohol yesterday. He also reports associated fatigue, headache, dizziness and nausea. He reports 1 episode of dark stool yesterday but unsure about blood in stool. He also has H/O fall/injury 2 days ago and reports bruise on right rib and left foot. Denies any blurry vision, vision change, chest pain, shortness of breath, abdominal pain, diarrhea, constipation, urinary complains or tremors. PMD: Dr. Marilynn Castro PMH: Alcohol abuse, denies any other medical problems PSH: Rhinoplasty and Cholecystectomy Allergies: Denies Medications: Denies taking any home medications. Social Hx: Alcohol abuse, denies smoking or illicit drug use. Patient reports living alone. FH: Denies any family history ROS: As per HPI ER course: - Vitals: Temp: 98.4, HR 58, BP: 117/78, RR 18, O2 sat 96 - CBC: H/H 16.2/48.2, WBC 4.2. BMP WNL except AST 226, ALT 150, Coags WNL. - Troponin x 1 neg - UA unremarkable - ALcohol <10, Utox Unremarkable - EKG, CXR, CT abd and pelvis with IV contrast - S/P Ativan 2 mg IVP x 2 in ED, Yessica leiva Present on Admission - Present on Admission Any Indicators Present on Admission: No History of DVT/PE: No History of Uncontrolled Diabetes: No Urinary Catheter: No Decubitus Ulcer Present: No Review of Systems - Review of Systems All systems: reviewed and no additional remarkable complaints except Review of Systems: As per HPI Past Patient History - Past Medical History & Family History Past Medical History?: Yes - Past Social History Alcohol: None Drugs: Denies - CARDIAC Hx Hypertension: No - PULMONARY Hx Tuberculosis: No - NEUROLOGICAL Hx Seizures: No - HEENT Hx HEENT Problems: No - RENAL Hx Chronic Kidney Disease: No - ENDOCRINE/METABOLIC Hx Endocrine Disorders: No - HEMATOLOGICAL/ONCOLOGICAL Hx Human Immunodeficiency Virus (HIV): No - INTEGUMENTARY Hx Dermatological Problems: No - MUSCULOSKELETAL/RHEUMATOLOGICAL Hx Falls: No - GASTROINTESTINAL Hx Gastrointestinal Disorders: No - GENITOURINARY/GYNECOLOGICAL Hx Sexually Transmitted Disorders: No - PSYCHIATRIC Hx Depression: Yes - SURGICAL HISTORY Hx Cholecystectomy: Yes - ANESTHESIA Hx Anesthesia: Yes Hx Anesthesia Reactions: No Hx Malignant Hyperthermia: No Meds Allergies/Adverse Reactions: Allergies Allergy/AdvReac Type Severity Reaction Status Date / Time chlordiazepoxide Allergy VOMITING Verified 09/10/18 16:04 [From Librium] Physical Exam - Constitutional Appears: Non-toxic, No Acute Distress - Head Exam Head Exam: ATRAUMATIC, NORMOCEPHALIC - Eye Exam Eye Exam: EOMI, Normal appearance. absent: Conjunctival injection - ENT Exam ENT Exam: Mucous Membranes Moist - Neck Exam Neck exam: Negative for: Tenderness - Respiratory Exam Respiratory Exam: Clear to Auscultation Bilateral. absent: Chest Wall Tenderness, Rales, Rhonchi, Wheezes - Cardiovascular Exam Cardiovascular Exam: REGULAR RHYTHM, +S1, +S2. absent: Tachycardia - GI/Abdominal Exam GI & Abdominal Exam: Normal Bowel Sounds. absent: Distended, Soft, Tenderness - Extremities Exam Extremities exam: Positive for: pedal edema, pedal pulses present. Negative for: calf tenderness, tenderness Additional comments: L foot: Heel with Erythema, abrasion, tenderness, No discharge. - Neurological Exam Neurological exam: Alert Additional comments: Oriented to place and person only. - Psychiatric Exam Psychiatric exam: Anxious - Skin Skin Exam: Dry, Intact, Normal Color Results - Vital Signs Recent Vital Signs: Last Vital Signs Temp 98.4 F 09/10/18 12:18 Pulse 58 L 09/10/18 12:18 Resp 18 09/10/18 12:18 BP 117/78 09/10/18 12:18 Pulse Ox 96 09/10/18 12:57 - Labs Result Diagrams: 09/10/18 12:05 09/10/18 12:05 Labs: Laboratory Results - last 24 hr 09/10/18 09/10/18 09/10/18 11:56 12:05 12:05 WBC 4.2 L RBC 4.80 Hgb 16.2 Hct 48.2 MCV 100.6 H MCH 33.7 H MCHC 33.5 RDW 15.3 H Plt Count 131 MPV 7.2 Neut % (Auto) 58.4 Lymph % (Auto) 26.1 [place] % (Auto) 9.4 Eos % (Auto) 5.3 H Baso % (Auto) 0.8 Neut # (Auto) 2.4 Lymph # (Auto) 1.1 [place] # (Auto) 0.4 Eos # (Auto) 0.2 Baso # (Auto) 0.0 PT INR APTT Sodium 141 Potassium 4.0 Chloride 108 H Carbon Dioxide 25 Anion Gap 12 BUN 9 Creatinine 0.9 Est GFR ( Amer) > 60 Est GFR (Non-Af Amer) > 60 POC Glucose (mg/dL) Random Glucose 100 Calcium 8.4 Total Bilirubin 1.4 H AST 226 H D ALT 150 H D Alkaline Phosphatase 90 Troponin I < 0.0120 Total Protein 6.0 L Albumin 3.2 L Globulin 2.9 Albumin/Globulin Ratio 1.1 Urine Color [place] Urine Clarity Slighty-cloudy Urine pH 6.0 Ur Specific [place] 1.024 Urine Protein 30 Urine Glucose (UA) Neg Urine Ketones Negative Urine Blood Negative Urine Nitrate Negative Urine Bilirubin Negative Urine Urobilinogen 2.0 Ur Leukocyte Esterase Neg Urine RBC (Auto) 2 Urine Microscopic WBC 1 Ur Squamous Epith Cells < 1 Urine Bacteria Rare Alcohol, Quantitative < 10 09/10/18 09/10/18 12:05 12:12 WBC RBC Hgb Hct MCV MCH MCHC RDW Plt Count MPV Neut % (Auto) Lymph % (Auto) [place] % (Auto) Eos % (Auto) Baso % (Auto) Neut # (Auto) Lymph # (Auto) [place] # (Auto) Eos # (Auto) Baso # (Auto) PT 13.0 INR 1.1 APTT 27.1 Sodium Potassium Chloride Carbon Dioxide Anion Gap BUN Creatinine Est GFR ( Amer) Est GFR (Non-Af Amer) POC Glucose (mg/dL) 88 Random Glucose Calcium Total Bilirubin AST ALT Alkaline Phosphatase Troponin I Total Protein Albumin Globulin Albumin/Globulin Ratio Urine Color Urine Clarity Urine pH Ur Specific [place] Urine Protein Urine Glucose (UA) Urine Ketones Urine Blood Urine Nitrate Urine Bilirubin Urine Urobilinogen Ur Leukocyte Esterase Urine RBC (Auto) Urine Microscopic WBC Ur Squamous Epith Cells Urine Bacteria Alcohol, Quantitative Assessment & Plan - Assessment and Plan (Free Text) Assessment: 62 y/o male with PMH of alcohol abuse admitted to [facility] for evaluation and treatment of alcohol withdrawal. Plan: Alcohol withdrawal - ALcohol <10, yesterday 207 - S/P banana beg, Ativan 2 mg x 2 in ED - Start Librium 25mg po Q8H - Ativan 0.5mg IV Q6H PRN for agitation - CIWA protocol - Zofran 4 mg IVP PRN - Pepcid 20 mg PO BID - Follow up CBC, BMP, Mg, Phosphorus - Psych consult ordered. Macrocytosis 2/2 alcohol intoxication - MCV 100.8 - F/U Thiamine, FA, B12 - Continue Banana bag - F/U CBC A fall, 2/2 acute intoxication - Head CT(09/09/18): Negative for acute changes - Neuro checks Q4 hr - F/U CT abd/pelvis w IV contrast - CXR H/O Chest pain - F/U EKG - Trops neg x 2 DVT PPX - Lovenox 40 mg SC <Mcallister,Kris D - Last Filed: 09/10/18 16:19> Results - Vital Signs Recent Vital Signs: Last Vital Signs Temp 98.7 F 09/10/18 16:00 Pulse 62 09/10/18 16:00 Resp 20 09/10/18 16:00 BP 151/80 H 09/10/18 16:00 Pulse Ox 98 09/10/18 16:00 - Labs Result Diagrams: 09/10/18 12:05 09/10/18 12:05 Labs: Laboratory Results - last 24 hr 09/10/18 09/10/18 09/10/18 11:56 12:05 12:05 WBC 4.2 L RBC 4.80 Hgb 16.2 Hct 48.2 MCV 100.6 H MCH 33.7 H MCHC 33.5 RDW 15.3 H Plt Count 131 MPV 7.2 Neut % (Auto) 58.4 Lymph % (Auto) 26.1 [place] % (Auto) 9.4 Eos % (Auto) 5.3 H Baso % (Auto) 0.8 Neut # (Auto) 2.4 Lymph # (Auto) 1.1 [place] # (Auto) 0.4 Eos # (Auto) 0.2 Baso # (Auto) 0.0 PT INR APTT Sodium 141 Potassium 4.0 Chloride 108 H Carbon Dioxide 25 Anion Gap 12 BUN 9 Creatinine 0.9 Est GFR ( Amer) > 60 Est GFR (Non-Af Amer) > 60 POC Glucose (mg/dL) Random Glucose 100 Calcium 8.4 Phosphorus Magnesium Total Bilirubin 1.4 H AST 226 H D ALT 150 H D Alkaline Phosphatase 90 Troponin I < 0.0120 Total Protein 6.0 L Albumin 3.2 L Globulin 2.9 Albumin/Globulin Ratio 1.1 Vitamin B12 Urine Color [place] Urine Clarity Slighty-cloudy Urine pH 6.0 Ur Specific [place] 1.024 Urine Protein 30 Urine Glucose (UA) Neg Urine Ketones Negative Urine Blood Negative Urine Nitrate Negative Urine Bilirubin Negative Urine Urobilinogen 2.0 Ur Leukocyte Esterase Neg Urine RBC (Auto) 2 Urine Microscopic WBC 1 Ur Squamous Epith Cells < 1 Urine Bacteria Rare Alcohol, Quantitative < 10 09/10/18 09/10/18 09/10/18 12:05 12:12 14:12 WBC RBC Hgb Hct MCV MCH MCHC RDW Plt Count MPV Neut % (Auto) Lymph % (Auto) [place] % (Auto) Eos % (Auto) Baso % (Auto) Neut # (Auto) Lymph # (Auto) [place] # (Auto) Eos # (Auto) Baso # (Auto) PT 13.0 INR 1.1 APTT 27.1 Sodium Potassium Chloride Carbon Dioxide Anion Gap BUN Creatinine Est GFR ( Amer) Est GFR (Non-Af Amer) POC Glucose (mg/dL) 88 Random Glucose Calcium Phosphorus 2.8 Magnesium 2.1 Total Bilirubin AST ALT Alkaline Phosphatase Troponin I Total Protein Albumin Globulin Albumin/Globulin Ratio Vitamin B12 469 Urine Color Urine Clarity Urine pH Ur Specific [place] Urine Protein Urine Glucose (UA) Urine Ketones Urine Blood Urine Nitrate Urine Bilirubin Urine Urobilinogen Ur Leukocyte Esterase Urine RBC (Auto) Urine Microscopic WBC Ur Squamous Epith Cells Urine Bacteria Alcohol, Quantitative Attending/Attestation - Attestation I have personally seen and examined this patient.: Yes I have fully participated in the care of the patient.: Yes I have reviewed all pertinent clinical information: Yes Notes (Text): 09/10/18 16:14 Patient seen and examined with resident. Patient was seen and admitted yesterday for chest pain and alcohol intoxication but signed out AMA. He came back today complaining of feeling jittery with headache. Denied having chest pain this time. Alcohol level today is < 10. Case was discussed and agreed with assessment and plan to admit patient for alcohol withdrawal.
--- NOTE | 2018-09-10 13:55 | CT ---
Date of service: 09/10/2018 PROCEDURE: CT Abdomen and Pelvis with contrast HISTORY: Flank ecchymosis COMPARISON: None. TECHNIQUE: Following the intravenous administration of iodinated contrast material, a CT examination of the abdomen and pelvis performed from the domes of the diaphragms to the symphysis pubis with reformatted datasets provided in axial, sagittal and coronal planes. Oral contrast was not administered as per referring physician request. Coronal and sagittal reformats were generated. Contrast dose: Omnipaque 300, 95 cc Radiation dose: Total exam DLP = 815.81 mGy-cm. This CT exam was performed using one or more of the following dose reduction techniques: Automated exposure control, adjustment of the mA and/or kV according to patient size, and/or use of iterative reconstruction technique. FINDINGS: LOWER THORAX: Small hiatal hernia identified. LIVER: Gross hepatic steatosis without hepatic mass or intrahepatic biliary dilatation appreciated. GALLBLADDER AND BILE DUCTS: Prior cholecystectomy. PANCREAS: Unremarkable. No gross lesion or ductal dilatation. SPLEEN: Unremarkable. ADRENALS: Unremarkable. No mass. KIDNEYS AND URETERS: Unremarkable. No hydronephrosis. No solid mass. VASCULATURE: Unremarkable. No aortic aneurysm. No aortic atherosclerotic calcification or mural plaque present. BOWEL: Unremarkable. No obstruction. No gross mural thickening. APPENDIX: Normal appendix. PERITONEUM: Unremarkable. No free fluid. No free air. LYMPH NODES: Unremarkable. No enlarged lymph nodes. BLADDER: Urinary bladder is limited evaluation due to near complete decompression. No radiodense urolithiasis appreciated REPRODUCTIVE: Enlarged prostate gland. BONES: Limited grade 1 spondylolisthesis L5-S1. OTHER FINDINGS: None. IMPRESSION: Gross hepatic steatosis. Prior cholecystectomy. No definite acute abdominal or pelvic findings.
--- NOTE | 2018-09-10 15:53 | RAD ---
Date of service: 09/10/2018 HISTORY: Dizziness COMPARISON: Chest radiograph 09/09/2018. FINDINGS: LUNGS: No active pulmonary disease as imaged. Right costophrenic sulcus not included in this examination. PLEURA: No significant pleural effusion identified, no pneumothorax apparent. CARDIOVASCULAR: No aortic atherosclerotic calcification present. Normal cardiac size. No pulmonary vascular congestion. OSSEOUS STRUCTURES: No significant abnormalities. VISUALIZED UPPER ABDOMEN: Normal. OTHER FINDINGS: None. IMPRESSION: No definitive significant interval change in the cardiopulmonary pattern. Note, right costophrenic sulcus is excluded in this examination.
[2018-09-10 20:23] VITALS: RESP 18
[2018-09-11 05:44] LABS: HEMOGLOBIN 15.9 g/dL (12.0-18.0); MEAN CELL VOLUME 100.1 fl (80.0-94.0); MEAN CORPUSCULAR HEMOGLOBIN 33.8 pg (27.0-31.0); MEAN CORPUSCULAR HGB CONC 33.8 g/dL (33.0-37.0); RBC 4.69 Mil/uL (4.40-5.90); RED CELL DISTRIBUTION WIDTH 15.1 % (11.5-14.5); WHITE BLOOD COUNT 4.6 K/uL (4.8-10.8)
[2018-09-11 05:59] LABS: BLOOD UREA NITROGEN 9 mg/dl (9-20); CALCIUM 7.9 mg/dL (8.4-10.2); GFR NON-AFRICAN AMERICAN > 60
[2018-09-11 08:17] VITALS: BP 125/73; TEMP 98.4
--- NOTE | 2018-09-11 08:40 | CP.PCM.CON ---
History of Present Illness - History of Present Illness History of Present Illness: This is a 62 yr old male with h/o depression and presented to ER with headache and admitted for alcohol withdrawl,alcohol intoxication and black stools and psych consult called for evaluation of anxiety and depression..pt has been binge drinking for past 2 weeks.pt is currently not in treatment for psych issues. Past Patient History - Past Medical History & Family History Past Medical History?: Yes - Past Social History Smoking Status: Never Smoked - CARDIAC Hx Hypertension: No - PULMONARY Hx Respiratory Disorders: No Hx Tuberculosis: No - NEUROLOGICAL Hx Neurological Disorder: No Hx Seizures: No - HEENT Hx HEENT Problems: No - RENAL Hx Chronic Kidney Disease: No - ENDOCRINE/METABOLIC Hx Endocrine Disorders: No - HEMATOLOGICAL/ONCOLOGICAL Hx Human Immunodeficiency Virus (HIV): No - INTEGUMENTARY Hx Dermatological Problems: No - MUSCULOSKELETAL/RHEUMATOLOGICAL Hx Falls: Yes - GASTROINTESTINAL Hx Gastrointestinal Disorders: No - GENITOURINARY/GYNECOLOGICAL Hx Genitourinary Disorders: No Hx Sexually Transmitted Disorders: No - PSYCHIATRIC Hx Depression: Yes Hx Substance Use: No - SURGICAL HISTORY Hx Surgeries: Yes Hx Cholecystectomy: Yes Other/Comment: rhinoplasty - ANESTHESIA Hx Anesthesia: Yes Hx Anesthesia Reactions: No Hx Malignant Hyperthermia: No Has any member of the family had a problem w/ anesthesia?: No (unknown) Meds Allergies/Adverse Reactions: Allergies Allergy/AdvReac Type Severity Reaction Status Date / Time chlordiazepoxide Allergy VOMITING Verified 09/10/18 16:04 [From Librium] - Medications Medications: Current Medications Diazepam (Valium) 5 mg PO Q8H [facility] Last Admin: 09/11/18 00:10 Dose: Not Given Enoxaparin Sodium (Lovenox) 40 mg SC DAILY [facility]; Protocol Famotidine (Pepcid) 20 mg PO BID [facility] Last Admin: 09/10/18 18:09 Dose: 20 mg Gabapentin (Neurontin) 300 mg PO TID [facility] Last Admin: 09/10/18 18:07 Dose: 300 mg Ibuprofen (Motrin Tab) 600 mg PO Q6 PRN PRN Reason: Pain, moderate (4-7) Last Admin: 09/11/18 00:10 Dose: 600 mg Ibuprofen (Motrin Tab) 400 mg PO Q6 PRN PRN Reason: Pain, Mild (1-3) Lorazepam (Ativan) 0.5 mg IVP Q6 PRN PRN Reason: Agitation Last Admin: 09/11/18 00:09 Dose: 0.5 mg Ondansetron HCl (Zofran Inj) 4 mg IVP Q6 PRN PRN Reason: Nausea/Vomiting Trazodone HCl (Desyrel) 50 mg PO HS PRN PRN Reason: Insomnia Results - Vital Signs Recent Vital Signs: Last Vital Signs Temp 98.4 F 09/11/18 08:00 Pulse 60 09/11/18 08:00 Resp 18 09/11/18 08:00 BP 125/73 09/11/18 08:00 Pulse Ox 95 09/11/18 08:00 - Labs Result Diagrams: 09/11/18 04:30 09/11/18 04:30 Labs: Laboratory Results - last 24 hr 09/10/18 09/10/18 09/10/18 11:56 12:05 12:05 WBC 4.2 L RBC 4.80 Hgb 16.2 Hct 48.2 MCV 100.6 H MCH 33.7 H MCHC 33.5 RDW 15.3 H Plt Count 131 MPV 7.2 Neut % (Auto) 58.4 Lymph % (Auto) 26.1 [place] % (Auto) 9.4 Eos % (Auto) 5.3 H Baso % (Auto) 0.8 Neut # (Auto) 2.4 Lymph # (Auto) 1.1 [place] # (Auto) 0.4 Eos # (Auto) 0.2 Baso # (Auto) 0.0 PT INR APTT Sodium 141 Potassium 4.0 Chloride 108 H Carbon Dioxide 25 Anion Gap 12 BUN 9 Creatinine 0.9 Est GFR ( Amer) > 60 Est GFR (Non-Af Amer) > 60 POC Glucose (mg/dL) Random Glucose 100 Calcium 8.4 Phosphorus Magnesium Total Bilirubin 1.4 H AST 226 H D ALT 150 H D Alkaline Phosphatase 90 Troponin I < 0.0120 Total Protein 6.0 L Albumin 3.2 L Globulin 2.9 Albumin/Globulin Ratio 1.1 Vitamin B12 Urine Color [place] Urine Clarity Slighty-cloudy Urine pH 6.0 Ur Specific [place] 1.024 Urine Protein 30 Urine Glucose (UA) Neg Urine Ketones Negative Urine Blood Negative Urine Nitrate Negative Urine Bilirubin Negative Urine Urobilinogen 2.0 Ur Leukocyte Esterase Neg Urine RBC (Auto) 2 Urine Microscopic WBC 1 Ur Squamous Epith Cells < 1 Urine Bacteria Rare Alcohol, Quantitative < 10 09/10/18 09/10/18 09/10/18 12:05 12:12 14:12 WBC RBC Hgb Hct MCV MCH MCHC RDW Plt Count MPV Neut % (Auto) Lymph % (Auto) [place] % (Auto) Eos % (Auto) Baso % (Auto) Neut # (Auto) Lymph # (Auto) [place] # (Auto) Eos # (Auto) Baso # (Auto) PT 13.0 INR 1.1 APTT 27.1 Sodium Potassium Chloride Carbon Dioxide Anion Gap BUN Creatinine Est GFR ( Amer) Est GFR (Non-Af Amer) POC Glucose (mg/dL) 88 Random Glucose Calcium Phosphorus 2.8 Magnesium 2.1 Total Bilirubin AST ALT Alkaline Phosphatase Troponin I Total Protein Albumin Globulin Albumin/Globulin Ratio Vitamin B12 469 Urine Color Urine Clarity Urine pH Ur Specific [place] Urine Protein Urine Glucose (UA) Urine Ketones Urine Blood Urine Nitrate Urine Bilirubin Urine Urobilinogen Ur Leukocyte Esterase Urine RBC (Auto) Urine Microscopic WBC Ur Squamous Epith Cells Urine Bacteria Alcohol, Quantitative 09/11/18 09/11/18 04:30 04:30 WBC 4.6 L RBC 4.69 Hgb 15.9 Hct 46.9 MCV 100.1 H MCH 33.8 H MCHC 33.8 RDW 15.1 H Plt Count 128 L MPV Neut % (Auto) Lymph % (Auto) [place] % (Auto) Eos % (Auto) Baso % (Auto) Neut # (Auto) Lymph # (Auto) [place] # (Auto) Eos # (Auto) Baso # (Auto) PT INR APTT Sodium 139 Potassium 4.3 Chloride 107 Carbon Dioxide 25 Anion Gap 11 BUN 9 Creatinine 0.9 Est GFR ( Amer) > 60 Est GFR (Non-Af Amer) > 60 POC Glucose (mg/dL) Random Glucose 90 Calcium 7.9 L Phosphorus Magnesium Total Bilirubin AST ALT Alkaline Phosphatase Troponin I Total Protein Albumin Globulin Albumin/Globulin Ratio Vitamin B12 Urine Color Urine Clarity Urine pH Ur Specific [place] Urine Protein Urine Glucose (UA) Urine Ketones Urine Blood Urine Nitrate Urine Bilirubin Urine Urobilinogen Ur Leukocyte Esterase Urine RBC (Auto) Urine Microscopic WBC Ur Squamous Epith Cells Urine Bacteria Alcohol, Quantitative
[2018-09-11] MEDS ORDERED: Enoxaparin 40 mg Syringe SC SCH (09:00)
[2018-09-11 11:02] VITALS: PULSE 52
--- NOTE | 2018-09-11 12:08 | CP.PCM.DIS ---
Provider - Provider Date of Admission: 09/10/18 12:08 Attending physician: Kris Mcallister MD Consults: 09/10/18 14:10 Psychiatry Consult Stat Comment: Consulting Provider: Jordan Kaur Consulting Physician: Jordan Kaur Reason for Consult: Alchohol intoxication/withdrawal 09/10/18 15:50 Social Work Referral Routine Comment: etoh abuse. Physician Instructions: dc plan Reason For Exam: lives alone. Time Spent in preparation of Discharge (in minutes): 15 Diagnosis - Discharge Diagnosis (1) Alcohol withdrawal Status: Acute (2) Alcohol abuse Status: Chronic (3) Foot laceration Status: Acute Hospital Course - Lab Results Lab Results: Most Recent Lab Values WBC 4.6 K/uL (4.8-10.8) L 09/11/18 04:30 RBC 4.69 Mil/uL (4.40-5.90) 09/11/18 04:30 Hgb 15.9 g/dL (12.0-18.0) 09/11/18 04:30 Hct 46.9 % (35.0-51.0) 09/11/18 04:30 MCV 100.1 fl (80.0-94.0) H 09/11/18 04:30 MCH 33.8 pg (27.0-31.0) H 09/11/18 04:30 MCHC 33.8 g/dL (33.0-37.0) 09/11/18 04:30 RDW 15.1 % (11.5-14.5) H 09/11/18 04:30 Plt Count 128 K/uL (130-400) L 09/11/18 04:30 MPV 7.2 fl (7.2-11.7) 09/10/18 12:05 Neut % (Auto) 58.4 % (50.0-75.0) 09/10/18 12:05 Lymph % (Auto) 26.1 % (20.0-40.0) 09/10/18 12:05 [place] % (Auto) 9.4 % (0.0-10.0) 09/10/18 12:05 Eos % (Auto) 5.3 % (0.0-4.0) H 09/10/18 12:05 Baso % (Auto) 0.8 % (0.0-2.0) 09/10/18 12:05 Neut # (Auto) 2.4 K/uL (1.8-7.0) 09/10/18 12:05 Lymph # (Auto) 1.1 K/uL (1.0-4.3) 09/10/18 12:05 [place] # (Auto) 0.4 K/uL (0.0-0.8) 09/10/18 12:05 Eos # (Auto) 0.2 K/uL (0.0-0.7) 09/10/18 12:05 Baso # (Auto) 0.0 K/uL (0.0-0.2) 09/10/18 12:05 PT 13.0 Seconds (9.8-13.1) 09/10/18 12:05 INR 1.1 09/10/18 12:05 APTT 27.1 Seconds (25.6-37.1) 09/10/18 12:05 Sodium 139 mmol/l (132-148) 09/11/18 04:30 Potassium 4.3 MMOL/L (3.6-5.0) 09/11/18 04:30 Chloride 107 mmol/L (98-107) 09/11/18 04:30 Carbon Dioxide 25 mmol/L (22-30) 09/11/18 04:30 Anion Gap 11 (10-20) 09/11/18 04:30 BUN 9 mg/dl (9-20) 09/11/18 04:30 Creatinine 0.9 mg/dl (0.8-1.5) 09/11/18 04:30 Est GFR ( Amer) > 60 09/11/18 04:30 Est GFR (Non-Af Amer) > 60 09/11/18 04:30 POC Glucose (mg/dL) 88 mg/dL (65-110) 09/10/18 12:12 Random Glucose 90 mg/dL (75-110) 09/11/18 04:30 Calcium 7.9 mg/dL (8.4-10.2) L 09/11/18 04:30 Phosphorus 2.8 mg/dl (2.5-4.5) 09/10/18 14:12 Magnesium 2.1 MG/DL (1.6-2.3) 09/10/18 14:12 Total Bilirubin 1.4 mg/dl (0.2-1.3) H 09/10/18 12:05 AST 226 U/L (17-59) H D 09/10/18 12:05 ALT 150 U/L (21-72) H D 09/10/18 12:05 Alkaline Phosphatase 90 U/L (38-126) 09/10/18 12:05 Troponin I < 0.0120 ng/mL (0.00-0.120) 09/10/18 12:05 Total Protein 6.0 G/DL (6.3-8.2) L 09/10/18 12:05 Albumin 3.2 g/dL (3.5-5.0) L 09/10/18 12:05 Globulin 2.9 gm/dL (2.2-3.9) 09/10/18 12:05 Albumin/Globulin Ratio 1.1 (1.0-2.1) 09/10/18 12:05 Vitamin B12 469 pg/mL (239-931) 09/10/18 14:12 TSH 3rd Generation 2.36 mIU/ML (0.46-4.68) 09/11/18 08:20 Urine Color [place] (YELLOW) 09/10/18 11:56 Urine Clarity Slighty-cloudy (Clear) 09/10/18 11:56 Urine pH 6.0 (5.0-8.0) 09/10/18 11:56 Ur Specific [place] 1.024 (1.003-1.030) 09/10/18 11:56 Urine Protein 30 mg/dL (NEGATIVE) 09/10/18 11:56 Urine Glucose (UA) Neg mg/dL (NEGATIVE) 09/10/18 11:56 Urine Ketones Negative mg/dL (NEGATIVE) 09/10/18 11:56 Urine Blood Negative (NEGATIVE) 09/10/18 11:56 Urine Nitrate Negative (NEGATIVE) 09/10/18 11:56 Urine Bilirubin Negative (NEGATIVE) 09/10/18 11:56 Urine Urobilinogen 2.0 mg/dL (0.2-1.0) 09/10/18 11:56 Ur Leukocyte Esterase Neg Jose/uL (Negative) 09/10/18 11:56 Urine RBC (Auto) 2 /hpf (0-3) 09/10/18 11:56 Urine Microscopic WBC 1 /hpf (0-5) 09/10/18 11:56 Ur Squamous Epith Cells < 1 /hpf (0-5) 09/10/18 11:56 Urine Bacteria Rare (<OCC) 09/10/18 11:56 Alcohol, Quantitative < 10 mg/dl (0-10) 09/10/18 12:05 - Hospital Course Hospital Course: 62 y/o M, with PMHx of alcohol abuse presented with alcohol intoxication on 09/09/18 but left AMA. Patient came to ED on 09/10 due for headache, dizziness, nausea and fatigue. In ED VSS, Troponins x 2 neg, Alcohol <10, Utox unremarkable, EKG, CXR, CT abd and pelvis done were unremarkable. Patient also received Ativan x 2, Banana beg and IVF in ED. Patient diagnosed with alcohol a buse and alcohol withdrawal and admitted for observation. Patient stable overnight, VSS without any further alcohol withdrawal symptoms. Psych consulted. Pt cleared by Psych to go home. Pt to be discharged home and continue home medications. Patient to F/u with PMD Dr. Castro in 2-4 days. Discharge Medications New medications - None Home Medications - Continue Gabapentin 300 mg TID - Continue Trazodone 50 mg QHS Discharge Exam - Head Exam Head Exam: ATRAUMATIC, NORMAL INSPECTION, NORMOCEPHALIC - Eye Exam Eye Exam: EOMI, Normal appearance, PERRL - ENT Exam ENT Exam: Mucous Membranes Moist - Neck Exam Neck exam: Full Rom - Respiratory Exam Respiratory Exam: Clear to PA & Lateral, NORMAL BREATHING PATTERN. absent: Rales, Rhonchi, Wheezes, Respiratory Distress - Cardiovascular Exam Cardiovascular Exam: REGULAR RHYTHM, +S1, +S2. absent: Tachycardia, Systolic Murmur - GI/Abdominal Exam GI & Abdominal Exam: Normal Bowel Sounds - Neurological Exam Neurological exam: Alert, Normal Gait, Oriented x3 - Psychiatric Exam Psychiatric exam: Normal Affect, Normal Mood - Skin Skin Exam: Dry, Intact, Normal Color, Warm Discharge Plan - Follow Up Plan Condition: GOOD Disposition: HOME/ ROUTINE Patient education suggested?: Yes Instructions: Alcohol Withdrawal (DC) Additional Instructions: Please follow up with in 2-4 DAYS ER precautions provided Referrals: Marilynn Castro MD [Family Provider] - Jordan Kaur MD [Staff Provider] -
[2018-09-11 13:05] LABS: FOLATE 9.7 ng/mL
--- NOTE | 2018-09-11 14:55 | CARD ---
APPROVED REPORT Date of service: 09/10/2018 EKG Measurement Heart [id number] <Conclusion> Sinus bradycardia Low voltage QRS Borderline ECG
[2018-09-12 14:17] VITALS: O2SAT 96
== END 2018-09-11 11:00 | disposition home or self-care (01) ==
LOC: H.ER 10:49 → H.ERHOLD 12:08 → INTOOBSV 12:08 → H.TEL 15:08
DX: F10.239 Alcohol dependence with withdrawal, unspecified (principal); F10.229 Alcohol dependence with intoxication, unspecified; F32.9 Major depressive disorder, single episode, unspecified; K76.0 Fatty (change of) liver, not elsewhere classified; D75.89 Other specified diseases of blood and blood-forming organs
CPT/HCPCS: 36415; 71045; 74177; 80048; 80053; 80320; 81003; 82607; 82746; 82948; 83735; 84100; 84425; 84443; 84484; 85025; 85027; 85610; 85730; 93005; 96372; 96374; 96375; 96376; 97161; 99284; G0378; G8978; G8979; J2060; J3411; J7030

== ENCOUNTER 2018-11-06 00:30 | Emergency (ER) | payer OTHER ==
[2018-11-06 00:34] VITALS: BMI 38.0
[2018-11-06] MEDS ORDERED: Tdap Vaccine 0.5 ml Vial (10-64 yrs) IM ONE ×2 (01:05→05:45)
--- NOTE | 2018-11-06 01:17 | ED PDOC ---
HPI: Psych/Substance Abuse Time Seen by Provider: 11/06/18 00:42 Chief Complaint (Nursing): Alcohol Ingestion Chief Complaint (Provider): Alcohol Ingestion History Per: Patient History/Exam Limitations: no limitations Modifying Factor(s): Alcohol Additional Complaint(s): 63 y/o male was brought to the ED for alcohol intoxication and head injury. Patient admits to drinking 6 shots of liquor. He reports he fell down twice. Unknown loss of consciousness. Patient denies chest pain or other injury. Past Medical History Reviewed: Historical Data, Nursing Documentation, Vital Signs Vital Signs: Last Vital Signs Temp 97.4 F L 11/06/18 00:33 Pulse 92 H 11/06/18 00:33 Resp 20 11/06/18 00:33 BP 118/64 11/06/18 00:33 Pulse Ox 99 11/06/18 00:33 - Medical History PMH: Depression Denies: Diabetes, Hepatitis, HIV, HTN, Chronic Kidney Disease, Seizures, Sexually Transmitted Disease - Surgical History Surgical History: Cholecystectomy - Family History Family History: States: Unknown Family Hx - Immunization History Hx Tetanus Toxoid Vaccination: No Hx Influenza Vaccination: No Hx Pneumococcal Vaccination: No - Home Medications Home Medications: Ambulatory Orders Medication Instructions Recorded Gabapentin [Neurontin] 300 mg PO TID #90 cap 09/27/17 Multivitamins [Hexavitamin] 1 tab PO DAILY #30 tab 09/27/17 Gabapentin [Neurontin] 100 mg PO BID #60 cap 10/27/18 Pantoprazole [Protonix EC Tab] 20 mg PO DAILY #30 ect 10/27/18 hydrOXYzine HCl [Atarax] 25 mg PO BID PRN #60 tab 10/27/18 traZODone [Desyrel] 100 mg PO HS PRN #20 tab 10/27/18 - Allergies Allergies/Adverse Reactions: Allergies Allergy/AdvReac Type Severity Reaction Status Date / Time chlordiazepoxide Allergy VOMITING Verified 10/22/18 13:08 [From Librium] Review of Systems ROS Statement: Except As Marked, All Systems Reviewed And Found Negative Physical Exam - Reviewed Nursing Documentation Reviewed: Yes Vital Signs Reviewed: Yes - Physical Exam Appears: Positive for: Well (alcohol on breath), No Acute Distress Head Exam: Negative for: ATRAUMATIC (right side of forehead has superficial abrasion; no laceration or active bleeding) Skin: Positive for: Normal Color, Warm, DRY Eye Exam: Positive for: EOMI, Normal appearance, PERRL ENT: Positive for: Normal ENT Inspection Cardiovascular/Chest: Positive for: Regular Rate, Rhythm. Negative for: Murmur Respiratory: Positive for: Normal Breath Sounds. Negative for: Respiratory Distress Gastrointestinal/Abdominal: Positive for: Normal Exam, Soft. Negative for: Tenderness Extremity: Positive for: Normal ROM (actively moving all extremities), Other (superficial abrasions to both knees bilaterally but with full ROM and no tenderness or deformity). Negative for: Tenderness (knees bilaterally), Pedal Edema, Deformity, Swelling Neurologic/Psych: Positive for: Alert, Oriented (x3). Negative for: Motor/Sensory Deficits, Aphasia (slurred speech) - Laboratory Results Result Diagrams: 11/06/18 01:26 11/06/18 01:26 - ECG O2 Sat by Pulse Oximetry: 99 (RA) Pulse Ox Interpretation: Normal Medical Decision Making Medical Decision Making: Time: 00:55 Impression: Alcohol intoxication and head injury Initial plan: CT Head CT Cervical spine Alcohol serum CMP CBC w/ diff Tetanus UA 02:42 CT Head COMMENTS: There is normal configuration of sella turcica. There are no intra or extra- axial collections. There is no mass effect or midline shift. There is no evidence of hematoma formation. No hydrocephalus is present. The ventricles are symmetrical. No abnormal calcifications are present. There is diffuse age-appropriate cerebellar and cerebral atrophy with proportionally dilated ventricles and cortical sulci. There are bilateral periventricular and subcortical white matter hypolucencies compatible with mild chronic microvascular disease. Otherwise, no significant focal abnormalities are seen either in the posterior fossa or supratentorial compartment. IMPRESSION: 1. Age-appropriate cerebellar and cerebral atrophy. 2. Mild chronic microvascular disease. 3. No evidence of acute intracranial pathology. Thank you for your kind referral of this patient. 02:44 CT C Spine Findings: Mild osteopenia of the bones. Grade I etrolisthesis of C3 on C4 measuring 4.7 mm. Grade 1 anterolisthesis of C6 on C7 measuring 4.3 mm. There are diffuse spondylotic changes. Findings are demonstrated by disc space narrowing, osteophyte formation and degenerative endplate changes. Facet joint arthropathy is noted. No fracture or dislocation is seen. No aggressive bone lesion is noted. Impression: Spondylosis. Multilevel facet joint arthropathy. No acute bone pathology. 0540 On re-evaluation, pt. in no distress. Sleeping comfortably. Easily arousable. Offers no complaints. No slurred speech. Gait steady, unassisted. Abrasions cleansed, bacitracin ointment, and dressed by RN. Scribe Attestation: Documented by Sung Ventura acting as a scribe for Robby Newsome PA-C. Provider Scribe Attestation: All medical record entries made by the Scribe were at my direction and personally dictated by me. I have reviewed the chart and agree that the record accurately reflects my personal performance of the history, physical exam, medical decision making, and the department course for this patient. I have also personally directed, reviewed, and agree with the discharge instructions and disposition. Disposition - Clinical Impression Clinical Impression: Head injury, Alcohol intoxication - Patient ED Disposition Is Patient to be Admitted: No - Disposition Disposition: Routine/Home Disposition Time: 06:00 Condition: IMPROVED Additional Instructions: KWABENA MONSON, thank you for letting us take care of you today. Your provider was Norris Bacon MD and you were treated for ETOH;LACERATION TO FOREHEAD. The emergency medical care you received today was directed at your acute symptoms. If you were prescribed any medication, please fill it and take as directed. It may take several days for your symptoms to resolve. Return to the Emergency Department if your symptoms worsen, do not improve, or if you have any other problems. Please contact your doctor or call one of the physicians/clinics you have been referred to that are listed on the Patient Visit Information form that is included in your discharge packet. Bring any paperwork you were given at discharge with you along with any medications you are taking to your follow up visit. Our treatment cannot replace ongoing medical care by a primary care provider outside of the emergency department. Thank you for allowing the [facility] team to be part of your care today. If you had an X-Ray or CT scan: A Radiologist will review the ED reading if any change in treatment is needed we will contact you. If you had a blood, urine, or wound culture: It will take several days for the results, if any change in treatment is needed we will contact you. If you had an STI test: It will take 48 hours for the results. Please call after 1 week if you have not heard back. Instructions: Alcohol Use - When Is Drinking a Problem?, Minor Head Injury (DC), Alcohol Abuse and Alcoholism (DC) Forms: [employer] (American) Print Language: LAO
[2018-11-06 01:31] LABS: BASO % 0.5 % (0.0-2.0); EOS # 0.3 K/uL (0.0-0.7); EOS % 2.9 % (0.0-4.0); HEMOGLOBIN 16.4 g/dL (12.0-18.0); MEAN CORPUSCULAR HEMOGLOBIN 32.8 pg (27.0-31.0); MEAN CORPUSCULAR HGB CONC 34.2 g/dL (33.0-37.0); MEAN PLATELET VOLUME 7.3 fl (7.2-11.7); MONO # 0.6 K/uL (0.0-0.8); MONO % 5.5 % (0.0-10.0); NEUT # 7.5 K/uL (1.8-7.0); NEUT % 72.1 % (50.0-75.0); NRBC % 0.1 % (0.0-0.0); RBC 4.99 Mil/uL (4.40-5.90); RED CELL DISTRIBUTION WIDTH 12.2 % (11.5-14.5); WHITE BLOOD COUNT 10.4 K/uL (4.8-10.8)
[2018-11-06 01:33] LABS: SQUAMOUS EPITHIAL < 1 /hpf (0-5); URINE BILIRUBIN NEGATIVE (NEGATIVE); URINE BLOOD NEGATIVE (NEGATIVE); URINE CLARITY CLEAR (Clear); URINE COLOR COLORLESS (YELLOW); URINE GLUCOSE (UA) NEG (NEGATIVE); URINE LEUKOCYTE ESTERASE NEG Leu/uL (Negative); URINE PROTEIN NEGATIVE (NEGATIVE); URINE UROBILINOGEN 0.2-1.0 mg/dL (0.2-1.0)
[2018-11-06 01:37] LABS: ALB/GLOB RATIO 1.5 (1.0-2.1); ALBUMIN 4.4 g/dL (3.5-5.0); ALT/SGPT 80 U/L (21-72); AST/SGOT 80 U/L (17-59); BLOOD UREA NITROGEN 14 mg/dl (9-20); CALCIUM 8.9 mg/dL (8.4-10.2); GFR NON-AFRICAN AMERICAN > 60
[2018-11-06 02:48] VITALS: O2SAT 99
[2018-11-06] MEDS ORDERED: Bacitracin 500 Units/gm Oint Foilpak UD TOP STA (05:32)
[2018-11-06 06:17] VITALS: BP 132/84; PULSE 73; RESP 15; TEMP 98.1
--- NOTE | 2018-11-06 08:54 | CT ---
Date of service: 11/06/2018 PROCEDURE: CT HEAD WITHOUT CONTRAST. HISTORY: Trauma COMPARISON: 09/09/2018. TECHNIQUE: Axial computed tomography images were obtained through the head/brain without intravenous contrast. Radiation dose: Total exam DLP = 1163.34 mGy-cm. This CT exam was performed using one or more of the following dose reduction techniques: Automated exposure control, adjustment of the mA and/or kV according to patient size, and/or use of iterative reconstruction technique. FINDINGS: HEMORRHAGE: No intracranial hemorrhage. BRAIN: Mendez-white matter differentiation is preserved. There is no mass, mass effect or abnormal extra-axial fluid collection. There is no territorial infarction. The midline sagittal structures are normal. VENTRICLES: There is mild age-related global parenchymal volume loss and proportionate enlargement of the ventricles and cortical sulci. CALVARIUM: There is no calvarial fracture or extracranial soft tissue swelling. PARANASAL SINUSES: There is mild mucosal thickening in the right maxillary sinus. The remaining included paranasal sinuses are clear. MASTOID AIR CELLS: Predominantly clear. OTHER FINDINGS: None. IMPRESSION: No acute intracranial abnormality. No significant interval change. A preliminary report was provided by [employer].
--- NOTE | 2018-11-06 09:19 | CT ---
Date of service: 11/06/2018 PROCEDURE: CT Cervical Spine without contrast HISTORY: Trauma COMPARISON: None available. TECHNIQUE: Axial computed tomography images were obtained of the cervical spine without the use of intravenous contrast. Coronal and sagittal reformatted images were created and reviewed. Radiation dose: Total exam DLP = 369.24 mGy-cm. This CT exam was performed using one or more of the following dose reduction techniques: Automated exposure control, adjustment of the mA and/or kV according to patient size, and/or use of iterative reconstruction technique. FINDINGS: VERTEBRAE: There is 3 mm degenerative retrolisthesis of C3 on C4. There is normal cervical lordosis. There is no acute fracture or traumatic anterior listhesis. The craniocervical junction is normal. There is mild degenerative osteoarthrosis at the atlantoaxial joint. DISCS/SPINAL CANAL/NEURAL FORAMINA: There is mild multilevel degenerative disc disease due to combination of disc osteophyte complexes, uncovertebral joint hypertrophy and multilevel facet arthropathy, worse at C3-4 with a broad-based central disc protrusion which indents the ventral thecal sac with mild spinal canal stenosis. Mild bilateral facet arthropathy contributes to mild right neural foraminal narrowing. PARASPINAL SOFT TISSUES: The paraspinous soft tissues are normal. OTHER FINDINGS: No prevertebral soft tissue thickening. No apical pneumothorax IMPRESSION: No acute fracture or traumatic anterior listhesis Broad-based central disc protrusion at C3-4 with mild spinal canal stenosis and degenerative 3 mm retrolisthesis of C3 on C4. A preliminary report was provided by [facility].
== END 2018-11-06 06:16 | disposition home or self-care (01) ==
LOC: H.ER 00:30
DX: F10.129 Alcohol abuse with intoxication, unspecified (principal); S09.90XA Unspecified injury of head, initial encounter; W19.XXXA Unspecified fall, initial encounter; Y92.89 Other specified places as the place of occurrence of the external cause; F32.9 Major depressive disorder, single episode, unspecified; M48.02 Spinal stenosis, cervical region